=== PATIENT | female | born 1970 ===

== ENCOUNTER 2022-10-22 18:23 | Emergency (ER) | payer OTHER, SELFPAY ==
--- NOTE | ~2022-10-22 | XR_ITS ---
EXAMINATION: XR CHEST CLINICAL INFORMATION: Cough with yellow phlegm COMPARISON: None TECHNIQUE: 2 views of the chest were obtained. FINDINGS: Aside from the presence of some minimal left basilar atelectasis, no significant abnormality is noted involving the heart, lungs, mediastinum, bony thorax or soft tissues. XR/XR chest 2V IMPRESSION: Unremarkable examination.
[2022-10-22 18:30] VITALS: BP 159/90; PULSE 94; RESP 18; TEMP 36.6; O2SAT 96; BMI 41.5
--- NOTE | 2022-10-22 18:32 | ED.GENADULT ---
HPI - General Adult General Chief complaint: Upper Respiratory Symptoms <DUKE Suggs - Last Filed: 10/22/22 21:05> Stated complaint: back rib pain <DUKE Suggs - Last Filed: 10/22/22 21:05> Time Seen by Provider: 10/22/22 20:22 <DUKE Suggs - Last Filed: 10/22/22 21:05> Source: patient <Dave Chappell MD - Last Filed: 10/22/22 20:53> Mode of arrival: ambulatory <Dave Chappell MD - Last Filed: 10/22/22 20:53> Limitations: no limitations <Dave Chappell MD - Last Filed: 10/22/22 20:53> History of Present Illness HPI narrative: 52-year-old female with history of diabetes presents to the emergency department with cough, chest discomfort. Symptoms started 2 weeks ago. They have been stable. There has been no clear relieving or exacerbating features. Symptoms are described as moderate in nature. However over the last couple days she has developed yellow mucus production. She does have a pleuritic type of chest pain specifically on the right side. She denies wheezing or chest pain with exertion. She has had no fevers or chills. Last week she did have some diarrhea but no constipation, nausea, or vomiting. Patient has been attempting home remedies without significant relief. <Dave Chappell MD - Last Filed: 10/22/22 20:53> Related Data Home medications: Previous Rx's Medication Instructions Recorded azithromycin 250 mg tablet 250 mg PO DAILY 4 days #4 tabs 10/22/22 benzonatate 200 mg capsule 200 mg PO TID PRN cough #14 caps 10/22/22 <DUKE Suggs - Last Filed: 10/22/22 21:05> Allergies/adverse reactions: Allergies Allergy/AdvReac Type Severity Reaction Status Date / Time No Known Allergies Allergy Verified 10/22/22 18:30 <DUKE Suggs - Last Filed: 10/22/22 21:05> Review of Systems Review of Systems: CONSTITUTIONAL: Denies weight loss, fever and chills. HEENT: Denies changes in vision and hearing. RESPIRATORY: Denies SOB + cough. CV: Denies palpitations + CP. GI: Denies abdominal pain, nausea, vomiting and diarrhea. : Denies dysuria and urinary frequency. MSK: Denies myalgia and joint pain. SKIN: Denies rash and pruritus. NEUROLOGICAL: Denies headache and syncope. PSYCHIATRIC: Denies recent changes in mood. Denies anxiety and depression. <Dave Chappell MD - Last Filed: 10/22/22 20:53> Yes all other systems are reviewed and are negative <Dave Chappell MD - Last Filed: 10/22/22 20:53> [facility] Social History Social History: Social History Advance Directives: No Advance Directives Information Provided: Yes <DUKE Suggs - Last Filed: 10/22/22 21:05> Physical Exam ED Vital Signs: Vital Signs - 24 hr 10/22/22 18:30 Temperature 98 F Pulse Rate 94 Respiratory Rate 18 Blood Pressure 159/90 H Pulse Oximetry 96 Oxygen Delivery Method Room Air BMI result Body Mass Index 41.5 <DUKE Suggs - Last Filed: 10/22/22 21:05> Vital Signs - 24 hr 10/22/22 18:30 Temperature 98 F Pulse Rate 94 Respiratory Rate 18 Blood Pressure 159/90 H Pulse Oximetry 96 Oxygen Delivery Method Room Air BMI result Body Mass Index 41.5 GEN: Well developed, no acute distress, alert, oriented HEENT: Normocephalic, atraumatic, normal external ears, nose appears normal, no oropharyngeal edema or exudates Eyes: Normal to appearance Neck: Supple, no lymphadenopathy Respiratory: Talks in complete sentences, no respiratory distress, clear to auscultation bilaterally Cardiovascular: Regular rate and rhythm, no murmurs rubs or gallops Abdomen: Soft, nontender, nondistended, no guarding, no rebound Back: No CVA tenderness Extremities: No clubbing cyanosis or edema Neurologic: No focal neurologic deficits, cranial nerves 2-12 intact, strength is 5/5 bilaterally, gait normal Skin: No rash <Dave Chappell MD - Last Filed: 10/22/22 20:53> Course Course Course Narrative: RME: 52 yold female presents to the ED for coughing with yellow phelghm and right sided rib pain only when she coughs. no shortness of breath, pluerisy, leg swelling, or calf pain. <DUKE Suggs - Last Filed: 10/22/22 21:05> Reevaluation(s) Reevaluation #1: Patient's workup is complete. She tested positive for COVID. However, symptoms started 2 weeks ago. She is out of the window for Paxlovid. However, she is not developing mucus production. This is concerning for developing bacterial bronchitis superimposed on a previous viral infection. Will start patient on azithromycin and cough suppressant medications. I discussed all of her results including her chest x-ray which did not reveal any acute abnormalities. She will follow up with primary care doctor as needed. <Dave Chappell MD - Last Filed: 10/22/22 20:53> Time: 20:52 <Dave Chappell MD - Last Filed: 10/22/22 20:53> Medications Administered Discontinued Medications Generic Name Dose Route Start Last Admin Trade Name Freq PRN Reason Stop Dose Admin Azithromycin 500 mg 10/22/22 20:43 10/22/22 20:52 Azithromycin 500 Mg Tablet PO 10/22/22 20:44 500 mg ONCE ONE Administration <DUKE Suggs - Last Filed: 10/22/22 21:05> Medications Administered Discontinued Medications Generic Name Dose Route Start Last Admin Trade Name Freq PRN Reason Stop Dose Admin Azithromycin 500 mg 10/22/22 20:43 10/22/22 20:52 Azithromycin 500 Mg Tablet PO 10/22/22 20:44 500 mg ONCE ONE Administration <Dave Chappell MD - Last Filed: 10/22/22 20:53> Medical Decision Making Medical Decision Making MDM Narrative: 52-year-old female with history of diabetes presents with cough, pleuritic type of chest pain he now tested positive for COVID. Examination revealed clear to auscultation bilaterally. Her cardiac exam was normal. There is no lower extremity edema. Chest x-ray was normal without any evidence of infiltrates. At this time, will start patient on antibiotics and symptomatic relief. <Dave Chappell MD - Last Filed: 10/22/22 20:53> Differential Diagnosis Differential Diagnoses: The differential diagnosis associated with the presentation includes (Pneumonia, COVID, flu, RSV, CHF) <Dave Chappell MD - Last Filed: 10/22/22 20:53> Acute bronchitis <Dave Chappell MD - Last Filed: 10/22/22 20:53> Admission/Observation Consideration of admission/observation: Escalation of care including admission/observation considered <Dave Chappell MD - Last Filed: 10/22/22 20:53> Lab Data MDM Lab Attestation statement: I reviewed the patient's lab results. <Dave Chappell MD - Last Filed: 10/22/22 20:53> Labs: Lab Results 10/22/22 Range/Units 19:31 Influenza Type A (PCR) NEGATIVE (Negative) Influenza Type B (PCR) NEGATIVE (Negative) RSV RNA Qual (PCR) NEGATIVE (Negative) SARS-CoV-2 RNA (RT-PCR) POSITIVE A (Negative) <DUKE Suggs - Last Filed: 10/22/22 21:05> Lab Results 10/22/22 Range/Units 19:31 Influenza Type A (PCR) NEGATIVE (Negative) Influenza Type B (PCR) NEGATIVE (Negative) RSV RNA Qual (PCR) NEGATIVE (Negative) SARS-CoV-2 RNA (RT-PCR) POSITIVE A (Negative) <Dave Chappell MD - Last Filed: 10/22/22 20:53> Independent Interpretation I performed an independent interpretation of an: Plain X-Ray (Chest x-ray no acute cardiopulmonary disease) <Dave Chappell MD - Last Filed: 10/22/22 20:53> Radiology Impression Discussion of test interpretation with radiology: I have reviewed the radiologist's reading. ( XR/XR chest 2V IMPRESSION: Unremarkable examination. Dictated By:Geronimo Arguello MDSigned By:<Electronically signed by Geronimo Arguello MD in [place]>10/22/221922) <Dave Chappell MD - Last Filed: 10/22/22 20:53> Prescription Management I considered prescription management with: Antibiotic <Dave Chappell MD - Last Filed: 10/22/22 20:53> Chronic Conditions Patient?s care impacted by: Diabetes <Dave Chappell MD - Last Filed: 10/22/22 20:53> Discharge Plan Discharge Clinical Impression: Upper respiratory infection <DUKE Suggs - Last Filed: 10/22/22 21:05> Patient Disposition: Home, Self-Care <DUKE Suggs - Last Filed: 10/22/22 21:05> Instructions: Upper Respiratory Infection (ED), Viral Syndrome (ED) <DUKE Suggs - Last Filed: 10/22/22 21:05> Additional Instructions: Your seen today for a viral upper respiratory symptoms. He tested positive for COVID. Her symptoms started 2 weeks ago. Given your progressive cough and mucus production, I suspect your developing a bacterial bronchitis for which I am prescribing azithromycin. I am recommending close follow-up with her primary care provider in 3-5 days. However, should her symptoms worsen, please seek emergent care in the emergency department. <DUKE Suggs - Last Filed: 10/22/22 21:05> Prescriptions: New azithromycin 250 mg tablet 250 mg PO DAILY 4 Days Qty: 4 0RF Rx Instructions: start on day 2 of therapy benzonatate 200 mg capsule 200 mg PO TID PRN (Reason: cough) Qty: 14 0RF <DUKE Suggs - Last Filed: 10/22/22 21:05>
[2022-10-22 20:12] LABS: Influenza A PCR NEGATIVE (Negative); Influenza B PCR NEGATIVE (Negative); Resp Syncy Virus RNA Qual PCR NEGATIVE (Negative); SARS COV2 PCR INHOUSE POSITIVE (Negative)
[2022-10-22] MEDS: Azithromycin 500 MG TABLET PO (20:52)
--- NOTE | 2022-10-22 21:05 | PC.NURSE ---
discharge instructions given/explained, ambulates safely/independently, no apparent distress, all questions answered
--- NOTE | 2022-10-22 21:06 | PC.NURSE ---
no respiratory distress; able to speak in full sentences
== END 2022-10-22 21:06 | disposition home or self-care (01) ==
PROVIDERS: Physician Assistant; Emergency Provider Emergency Medicine
DX: U07.1 COVID-19 (principal); J06.9 Acute upper respiratory infection, unspecified; E11.9 Type 2 diabetes mellitus without complications
CPT/HCPCS: 0241U; 71046; 99283; 99284

== ENCOUNTER 2022-11-15 02:15 | Emergency (ER) | payer OTHER, SELFPAY ==
[2022-11-15] VITALS (7 sets, daily range): BP systolic 137–202; BP diastolic 76–106; PULSE 72–108; RESP 16–24; TEMP 36.7–37.2; O2SAT 94–98; BMI 41.3
--- NOTE | ~2022-11-15 | CT_ITS ---
EXAMINATION: CT ABDOMEN AND PELVIS WITHOUT CONTRAST CLINICAL INFORMATION: Right-sided flank pain COMPARISON: None TECHNIQUE: Multidetector volumetric imaging was performed from the superior aspect of the liver through the pubic symphysis. Sagittal and coronal reformatted images were obtained on the technologist's workstation. This CT examination was performed using dose optimization techniques as appropriate, variously including the following: *Automated exposure control *Adjustment of mA and/or kV according to patient size (this includes techniques or standardized protocols for targeted exams where dose is matched to indication/reason for exam; i.e. extremities or head) *Use of iterative reconstruction technique DLP: 917 mGy-cm FINDINGS: There is mild atelectasis noted within the lingula visualized lower lobe. The liver is mildly enlarged and demonstrates diffusely decreased attenuation. The gallbladder is surgically absent. There is fatty atrophy of the pancreas. The spleen and adrenal glands are unremarkable. Mild right-sided hydronephrosis secondary to a 2 mm calculus within the right ureterovesical junction. No other renal calculi are noted within either kidney. There is mild asymmetric perinephric stranding of the right kidney. The stomach is decompressed. Normal caliber loops of small and large bowel. Moderate colonic diverticulosis without CT evidence to suggest active diverticulitis. Normal appendix. Small fat-containing umbilical and periumbilical hernia. Normal caliber abdominal aorta demonstrating mild atherosclerotic disease. No retroperitoneal lymphadenopathy. The bladder is relatively decompressed. Unremarkable CT appearance of the uterus. No gross free pelvic fluid. No inguinal lymphadenopathy. Moderate diffuse degenerative changes of the spine. CT/CT abdomen pelvis wo IV con IMPRESSION: 1. Mild right-sided hydronephrosis secondary to a 2 mm calculus within the right ureterovesical junction. 2. Mild hepatomegaly with diffusely decreased liver attenuation suggesting hepatic steatosis. Correlation with liver enzymes recommended. 3. Colonic diverticulosis. Fleischner guidelines were followed.
[2022-11-15] MEDS: Acetaminophen 325 MG TABLET 650 MG PO (02:38)
--- NOTE | 2022-11-15 02:53 | MHC.EDTECH ---
PT BLOOD DRAWN AND SENT TO LAB .
[2022-11-15 02:57] LABS: MANUAL DIFF FLAG NO
[2022-11-15 03:00] LABS: Basophils Percent Auto 0.4 % (0-2); Eosinophils Absolute Auto 0.2 X10*3/uL (0.0-0.4); Eosinophils Percent Auto 3.9 % (0-4); Hematocrit 37.8 % (37.0-47.0); Imm Gran Abs Auto 0.01 X10*3/uL (0.00-0.03); Imm Gran Pct Auto 0.2 % (0.0-0.4); Lymphocytes Absolute Auto 2.1 X10*3/uL (1.2-4.9); Lymphocytes Percent Auto 43.3 % (20-40); Mean Corpuscular HGB Conc 34.4 g/dl (31.0-35.0); Mean Corpuscular Hemoglobin 30.9 pg (27.0-33.0); Mean Corpuscular Volume 89.8 fL (80.0-98.0); Mean Platelet Volume 10.3 fL (9.4-12.3); Monocytes Absolute Auto 0.3 X10*3/uL (0.1-1.2); Monocytes Percent Auto 6.2 % (2-11); Neutrophils Absolute Auto 2.2 x10*3/uL (2.0-8.3); Platelet Count 225 X10*3/uL (160-400); Red Blood Count 4.21 X10*6/uL (4.20-5.50); Red Cell Distribution Width 12.1 % (11.0-16.0); White Blood Count 4.8 X10*3/uL (4.8-10.8)
[2022-11-15 03:16] LABS: Alanine Aminotransferase 25 U/L (0-31); Albumin Level 4.2 g/dL (3.5-5.0); Alkaline Phosphatase 99 U/L (39-117); Anion Gap 14 (12-20); Aspartate Amino Transferase 18 U/L (5-31); Bilirubin Total 0.8 mg/dL (0.0-1.0); Blood Urea Nitrogen 15 mg/dL (9-16); Calcium 9.1 mg/dL (8.4-10.2); Carbon Dioxide 26 mmol/L (22-29); Chloride 105 mmol/L (96-108); Creatinine Clr Calc Pharmacy 81.7; Estimated Glomerular Filt Rate > 60; Glucose Random 238 mg/dL (60-115); Potassium 4.7 mmol/L (3.3-5.1); Sodium 140 mmol/L (135-145); Total Protein 6.9 g/dL (6.5-8.0)
--- NOTE | 2022-11-15 04:20 | MHC.EDTECH ---
PT WAS CALLED BACK TO TRIAGE TO COLLECT URINE SAMPLE AND RE DO VITALS SIGN .
[2022-11-15 04:26] LABS: Appearance Urine Clear; Color Urine Yellow; Glucose Urine UA 250 mg/dL (Negative); Leukocyte Esterase Urine Negative (Negative); Nitrite Urine Negative (Negative); PH 6.5 (5.0-9.0); Specific Gravity - Urine 1.015 (1.005-1.025); UMIC TRIGGER UACC YES; Urine Blood Large (3+) (Negative); Urine Ketones Negative (Negative); Urine Protein Negative (Neg-Trace)
[2022-11-15 04:30] LABS: Bacteria Urine None Seen (None Seen); Hyaline Casts Urine 0-2 /LPF (0-2); RBC Urine >20 /HPF (0-2); Squamous Epithelial Cell Urine 0-2 /HPF (0-2); WBC Urine 0-5 /HPF (0-5)
[2022-11-15] MEDS: 0.9 % Sodium Chloride 1,000 ML 999 ML IV (10:41)
[2022-11-15] MEDS: Ketorolac Tromethamine 30 MG/ML VIAL 15 MG IVPUSH ×2 (10:41→13:21)
--- NOTE | 2022-11-15 11:25 | ED_ITS ---
HPI - Female Genitourinary General Chief complaint: Urogenital-Female Stated complaint: back pain Time Seen by Provider: 11/15/22 09:08 Source: patient Mode of arrival: ambulatory History of Present Illness HPI Narrative: 52-year-old female with history of renal colic presents with worsening right flank pain as well as blood in the urine, nausea but denies any fevers and is having chills. Related Data Previous Rx's Medication Instructions Recorded azithromycin 250 mg tablet 250 mg PO DAILY 4 days #4 tabs 10/22/22 benzonatate 200 mg capsule 200 mg PO TID PRN cough #14 caps 10/22/22 ketorolac 10 mg tablet 10 mg PO Q6H PRN pain 5 days #20 11/15/22 tabs tamsulosin 0.4 mg capsule (Flomax) 0.4 mg PO BEDTIME #4 caps 11/15/22 Allergies Allergy/AdvReac Type Severity Reaction Status Date / Time No Known Allergies Allergy Verified 11/15/22 02:26 Review of Systems Review of Systems: Pertinent positives and negatives as stated in HPI [facility] Past Medical History Source: nursing notes reviewed Social History Social History Alcohol intake: never Smoked in Last 30 Days: No Use of substances other than those prescribed or required for medical reasons: No Advance Directives: No Physical Exam Vital Signs: Vital Signs: Last Vital Signs Temp 98.7 F 11/15/22 11:55 Pulse 91 11/15/22 11:55 Resp 16 11/15/22 11:55 BP 137/76 11/15/22 11:55 Pulse Ox 94 11/15/22 11:55 O2 Del Method 11/15/22 11:55 BMI result Body Mass Index 41.3 VITAL SIGNS: Reviewed. GENERAL: Well developed, well nourished, in moderate to severe distress. HEAD: Normocephalic/atraumatic EYES: PERRLA, EOMI LUNGS: Normal breath sounds. No adventitious sounds or accessory muscle use. SpO2<94> CARDIOVASCULAR: Regular rate and rhythm without noted murmurs ABDOMEN: Soft, non-tender, non-distended with bowel sounds,, no CVA tenderness MUSCULOSKELETAL: No tenderness, deformities, or effusions noted on gross inspection. EXTREMITIES: No cyanosis, clubbing or edema. SKIN: Inspection of the skin reveals no rashes NEUROLOGIC: Alert and oriented x 4. Strength and sensation to light touch were grossly intact x 4. Medications Administered Discontinued Medications Generic Name Dose Route Start Last Admin Trade Name Isa PRN Reason Stop Dose Admin Acetaminophen 650 mg 11/15/22 02:32 11/15/22 02:38 Acetaminophen 325 Mg Tablet PO 11/15/22 02:33 650 mg ONCE ONE Administration Sodium Chloride 1,000 mls @ 999 mls/hr 11/15/22 09:30 11/15/22 11:46 Ns IV 11/15/22 10:30 Infused .Q1H1M ALLEY Infusion Ketorolac Tromethamine 15 mg 11/15/22 09:26 11/15/22 10:41 Ketorolac Tromethamine 30 Mg/Ml Vial IVPUSH 11/15/22 09:27 15 mg ONCE ONE Administration Medical Decision Making Medical Decision Making [facility] Narrative: 52-year-old female with history and clinical presentation suggestive possible renal and less likely felt to be a pyelonephritis and she is status post cholecystectomy. I reviewed all investigations in my interpretation as patient has hydronephrosis secondary to 2 mm stone at the UVJ. Patient receiving analgesics, IV fluids and will be re-evaluated. On re-evaluation patient is feeling much better, she is not nauseous or vomiting and will be placed on Flomax and medications for pain and given referral to foll ow-up with urology. Patient states that she has passed all prior renal stones. Differential Diagnosis Please see the discussion above Lab Data Please see the discussion above 11/15/22 02:52 11/15/22 02:52 Labs: Lab Results 11/15/22 11/15/22 11/15/22 Range/Units 02:52 02:52 04:21 WBC 4.8 (4.8-10.8) X10*3/uL RBC 4.21 (4.20-5.50) X10*6/uL Hgb 13.0 (12.0-16.0) g/dl Hct 37.8 (37.0-47.0) % MCV 89.8 (80.0-98.0) fL MCH 30.9 (27.0-33.0) pg MCHC 34.4 (31.0-35.0) g/dl RDW 12.1 (11.0-16.0) % Plt Count 225 (160-400) X10*3/uL MPV 10.3 (9.4-12.3) fL Immature Gran % (Auto) 0.2 (0.0-0.4) % Neut % (Auto) 46.0 (45-73) % Lymph % (Auto) 43.3 H (20-40) % [place] % (Auto) 6.2 (2-11) % Eos % (Auto) 3.9 (0-4) % Baso % (Auto) 0.4 (0-2) % Lymph # (Auto) 2.1 (1.2-4.9) X10*3/uL [place] # (Auto) 0.3 (0.1-1.2) X10*3/uL Eos # (Auto) 0.2 (0.0-0.4) X10*3/uL Baso # (Auto) 0.0 (0.0-0.2) X10*3/uL Abs Immat Gran (auto) 0.01 (0.00-0.03) X10*3/uL Absolute Neuts (auto) 2.2 (2.0-8.3) x10*3/uL Absolute Nucleated RBC 0.000 (0.0-0.012) X10*3/uL Nucleated RBC % (auto) 0.0 (0.0-0.2) /100WBC Sodium 140 (135-145) mmol/L Potassium 4.7 (3.3-5.1) mmol/L Chloride 105 (96-108) mmol/L Carbon Dioxide 26 (22-29) mmol/L Anion Gap 14 (12-20) BUN 15 (9-16) mg/dL Creatinine 0.85 (0.5-1.4) mg/dL Estim Creat Clear Calc 81.7 Estimated GFR > 60 Random Glucose 238 H (60-115) mg/dL Calcium 9.1 (8.4-10.2) mg/dL Total Bilirubin 0.8 (0.0-1.0) mg/dL AST 18 (5-31) U/L ALT 25 (0-31) U/L Alkaline Phosphatase 99 (39-117) U/L Total Protein 6.9 (6.5-8.0) g/dL Albumin 4.2 (3.5-5.0) g/dL Urine Color Yellow Urine Appearance Clear Urine pH 6.5 (5.0-9.0) Ur Specific [place] 1.015 (1.005-1.025) Urine Protein Negative (Neg-Trace) mg/dL Urine Glucose (UA) 250 H (Negative) mg/dL Urine Ketones Negative (Negative) mg/dL Urine Blood Large (3+) H (Negative) Urine Nitrite Negative (Negative) Ur Leukocyte Esterase Negative (Negative) Urine RBC >20 H (0-2) /HPF Urine WBC 0-5 (0-5) /HPF Ur Squamous Epith Cells 0-2 (0-2) /HPF Urine Bacteria None Seen (None Seen) Hyaline Casts 0-2 (0-2) /LPF Radiology Impression Radiologist Impression: My interpretation is in agreement with radiology's impression of the imaging study. Critical Care Time Critical Care Time Critical Care Time: Yes Total Critical Care Time: 30 Attestation: I personally attest to this time spent taking care of the patient. Discharge Plan Discharge Clinical Impression: Hydronephrosis, Ureterolithiasis Patient Disposition: Home, Self-Care Instructions: Renal Colic (ED), Low Oxalate Diet (ED), Hydronephrosis (ED), Ureteral Stones (ED) Additional Instructions: 1. Tylenol 1000 mg, orally, every 6 hours as needed for pain control. Do not exceed 4000 mg within 24 hours. 2. You have been given a referral to follow-up with urology, please call the office today's set up an appointment for re-evaluation further outpatient management.. Increase the amount of water intake. 3. Follow-up with your primary care provider as well. Return to the ER for any worsening symptoms. Prescriptions: New ketorolac 10 mg tablet 10 mg PO Q6H PRN (Reason: pain) 5 Days Qty: 20 0RF Rx Instructions: Patient received Toradol in the emergency room. tamsulosin [Flomax] 0.4 mg capsule 0.4 mg PO BEDTIME Qty: 4 0RF No Action azithromycin 250 mg tablet 250 mg PO DAILY 4 Days Qty: 4 0RF Rx Instructions: start on day 2 of therapy benzonatate 200 mg capsule 200 mg PO TID PRN (Reason: cough) Qty: 14 0RF Referrals: Prashanth Aquino MD [Physician] -
[2022-11-15] MEDS: Tamsulosin HCL 0.4 MG CAPSULE PO (13:22)
--- NOTE | 2022-11-15 13:34 | PC.NURSE ---
PT REPORTS THAT SHE IS FEELING BETTER AND HER PAIN LEVEL IS DOWN TO A 3. REPORTS THAT SHE FEELS WELL ENOUGH TO GO HOME AND HER DAUGHTER IS HERE TO BRING HER HOME. DENIES N/V. SKIN WARM AND DRY. RESP UNLABORED.
== END 2022-11-15 14:37 | disposition home or self-care (01) ==
PROVIDERS: Emergency Provider Student in an Organized Health Care Education/Training Program
DX: N13.30 Unspecified hydronephrosis (principal); N20.1 Calculus of ureter; M54.50 Low back pain, unspecified; Z79.899 Other long term (current) drug therapy
CPT/HCPCS: 36415; 74176; 80053; 81001; 85025; 96361; 96374; 96376; 99284; 99285; J1885

== ENCOUNTER 2023-03-26 22:16 | Emergency (ER) | payer OTHER, SELFPAY ==
--- NOTE | ~2023-03-26 | CT_ITS ---
EXAMINATION: CT ABDOMEN AND PELVIS WITHOUT CONTRAST CLINICAL INFORMATION: Right flank pain, right lower quadrant pain COMPARISON: CT abdomen pelvis 11/15/2022 TECHNIQUE: Multidetector volumetric imaging was performed from the superior aspect of the liver through the pubic symphysis. Sagittal and coronal reformatted images were obtained on the technologist's workstation. This CT examination was performed using dose optimization techniques as appropriate, variously including the following: *Automated exposure control *Adjustment of mA and/or kV according to patient size (this includes techniques or standardized protocols for targeted exams where dose is matched to indication/reason for exam; i.e. extremities or head) *Use of iterative reconstruction technique DLP: 808 mGy-cm FINDINGS: LUNG BASES: The visualized lung bases are unremarkable aside from bibasilar scarring/atelectasis. LIVER, GALLBLADDER, AND BILIARY TREE: The liver is again noted to be enlarged measuring 19.6 cm in cephalocaudad dimension with decreased attenuation consistent with hepatic steatosis. No focal hepatic lesion or biliary ductal dilatation is present. Status post cholecystectomy. PANCREAS: Unremarkable. There is fatty infiltration of the pancreatic head. SPLEEN: Unremarkable. ADRENAL GLANDS: Unremarkable. KIDNEYS AND URETERS: The kidneys are normal in size, shape, and attenuation. No hydronephrosis, hydroureter, or calculi seen. No perinephric stranding. The previously seen obstructing right UVJ stone is no longer present and the previously noted mild right hydronephrosis has resolved. BLADDER: Unremarkable. GASTROINTESTINAL TRACT: The small and large bowel are unremarkable aside from the presence of colonic diverticula without diverticulitis. The appendix is unremarkable. ABDOMINAL WALL: There is a small periumbilical hernia seen containing fat. LYMPH NODES: No retroperitoneal lymphadenopathy. VASCULAR: Unremarkable. PELVIC VISCERA: The uterus and adnexa are unremarkable. OSSEOUS STRUCTURES: Unremarkable. CT/CT abdomen pelvis wo IV con IMPRESSION: 1. A cause for the patient's right flank pain has not been found. 2. The previously seen obstructing right UVJ stone is no longer present and the previously noted mild right hydronephrosis has resolved. 3. Incidental note made of enlarged fatty liver, colonic diverticulosis without diverticulitis, normal appearing appendix and a small periumbilical hernia containing fat. Fleischner guidelines were followed.
[2023-03-26 23:38] VITALS: BP 158/90; PULSE 83; RESP 18; TEMP 36.6; O2SAT 96; BMI 41.6
[2023-03-27 00:09] LABS: Appearance Urine Clear; Color Urine Yellow; Glucose Urine UA Negative (Negative); Leukocyte Esterase Urine Negative (Negative); Nitrite Urine Negative (Negative); PH 5.5 (5.0-9.0); Specific Gravity - Urine 1.025 (1.005-1.025); Urine Blood Negative (Negative); Urine Ketones Negative (Negative); Urine Protein Negative (Neg-Trace)
[2023-03-27 00:10] LABS: MANUAL DIFF FLAG NO
[2023-03-27 00:12] LABS: Bacteria Urine None Seen (None Seen); Hyaline Casts Urine 0-2 /LPF (0-2); RBC Urine 0-2 /HPF (0-2); Squamous Epithelial Cell Urine 0-2 /HPF (0-2); WBC Urine 0-5 /HPF (0-5)
[2023-03-27 00:13] LABS: Basophils Percent Auto 0.4 % (0-2); Eosinophils Absolute Auto 0.3 X10*3/uL (0.0-0.4); Eosinophils Percent Auto 3.7 % (0-4); Hematocrit 36.1 % (37.0-47.0); Hemoglobin 12.2 g/dl (12.0-16.0); Imm Gran Abs Auto 0.02 X10*3/uL (0.00-0.03); Imm Gran Pct Auto 0.3 % (0.0-0.4); Lymphocytes Absolute Auto 2.1 X10*3/uL (1.2-4.9); Lymphocytes Percent Auto 31.6 % (20-40); Mean Corpuscular HGB Conc 33.8 g/dl (31.0-35.0); Mean Corpuscular Hemoglobin 30.8 pg (27.0-33.0); Mean Corpuscular Volume 91.2 fL (80.0-98.0); Mean Platelet Volume 10.5 fL (9.4-12.3); Monocytes Absolute Auto 0.5 X10*3/uL (0.1-1.2); Monocytes Percent Auto 6.9 % (2-11); Neutrophils Absolute Auto 3.8 x10*3/uL (2.0-8.3); Neutrophils Percent Auto 57.1 % (45-73); Platelet Count 234 X10*3/uL (160-400); Red Blood Count 3.96 X10*6/uL (4.20-5.50); Red Cell Distribution Width 11.9 % (11.0-16.0); White Blood Count 6.7 X10*3/uL (4.8-10.8)
[2023-03-27 00:28] LABS: Alanine Aminotransferase 20 U/L (0-31); Albumin Level 4.2 g/dL (3.5-5.0); Alkaline Phosphatase 81 U/L (39-117); Anion Gap 14 (12-20); Aspartate Amino Transferase 16 U/L (5-31); Bilirubin Total 0.8 mg/dL (0.0-1.0); Blood Urea Nitrogen 12 mg/dL (9-16); Calcium 9.7 mg/dL (8.4-10.2); Carbon Dioxide 24 mmol/L (22-29); Chloride 106 mmol/L (96-108); Creatinine Clr Calc Pharmacy 90.4; Estimated Glomerular Filt Rate > 60; Glucose Random 161 mg/dL (60-115); Potassium 4.4 mmol/L (3.3-5.1); Sodium 140 mmol/L (135-145); Total Protein 7.2 g/dL (6.5-8.0)
--- NOTE | 2023-03-27 07:20 | ED.FEMALEGU ---
HPI - Female Genitourinary General Chief complaint: Urogenital-Female Stated complaint: Flank pain Time Seen by Provider: 03/27/23 07:19 Source: patient Mode of arrival: ambulatory Limitations: no limitations History of Present Illness HPI Narrative: 52 yo female with history of kidney stone presents to the ER for evaluation of intermittent right sided flank pain and right lower quadrant pain for the last 5 days. She reports it is associated with nausea and diarrhea. No urinary symptoms. When the pain comes it is 9/10, stabbing and sharp pain. She states it feels similar to when she had a kidney stone in the past. No fever or chills. MD elicited complaint: flank pain and other (RLQ pain) Pertinent past history: other (kidney stone) Onset (ago): day(s) (5) Location of symptoms: RLQ and flank Severity: moderate Severity scale (1-10): 6 Quality of pain: stabbing Consistency: intermittent Vaginal discharge: none Vaginal bleeding: none Exacerbating factors: none Relieving factors: none Associated symptoms: abdominal pain Treatment prior to arrival: none Related Data Home Medications Medication Instructions Recorded Confirmed blood sugar diagnostic (FreeStyle #10 ea 01/24/23 Lite Strips) lancets 28 gauge (FreeStyle #100 ea 01/24/23 Lancets) lisinopril 2.5 mg tablet 2.5 mg PO DAILY 01/24/23 metformin 500 mg tablet,extended 500 mg PO DAILY 01/24/23 release 24 hr Previous Rx's Medication Instructions Recorded azithromycin 250 mg tablet 250 mg PO DAILY 4 days #4 tabs 10/22/22 benzonatate 200 mg capsule 200 mg PO TID PRN cough #14 caps 10/22/22 ketorolac 10 mg tablet 10 mg PO Q6H PRN pain 5 days #20 11/15/22 tabs tamsulosin 0.4 mg capsule (Flomax) 0.4 mg PO BEDTIME #4 caps 11/15/22 cyclobenzaprine 10 mg tablet 10 mg PO TID PRN muscle spasm #10 03/27/23 tabs naproxen 500 mg tablet 500 mg PO BID PRN pain #20 tabs 03/27/23 Allergies Allergy/AdvReac Type Severity Reaction Status Date / Time No Known Allergies Allergy Verified 11/15/22 02:26 Review of Systems Review of Systems: Yes all other systems are reviewed and are negative PMFSH Past Medical History Medical History (Updated 03/27/23 @ 09:49 by DUKE Jimenez) Diabetes Hyperlipidemia Hypertension Surgical History (Updated 03/27/23 @ 08:20 by Sarina Reddy) Hx of cholecystectomy Social History Social History Alcohol intake: never Smoked in Last 30 Days: No Use of substances other than those prescribed or required for medical reasons: No Advance Directives: No Patient : No Physical Exam Vital Signs: Vital Signs: Last Vital Signs Temp 97.9 F 03/27/23 09:54 Pulse 93 03/27/23 09:57 Resp 18 03/27/23 09:57 BP 137/80 03/27/23 09:57 Pulse Ox 96 03/27/23 09:57 O2 Del Method Room Air 03/27/23 09:57 BMI result Body Mass Index 41.6 Appearance: Alert. Oriented X3. No acute distress. Head: normocephalic, atraumatic. Eyes: Pupils equal, round and reactive to light. ENT: Pharynx normal. No tonsillar swelling or exudate. Neck: Normal inspection. Neck supple. CVS: Normal heart rate and rhythm. Pulses normal. Respiratory: No respiratory distress. Breath sounds normal. Abdomen: Soft with mild RLQ tenderness to deep palpation, mild CVA tenderness on the right and soft tissue tenderness of the lumbar region on the right. +BS x4 Skin: Skin warm and dry. Normal skin color. Normal skin turgor. No rashes. Extremities: No lower extremity edema. No joint swelling. Neuro/psych: Oriented X 3. No motor deficit. No sensory deficit. CN II-XII intact. Normal speech and cognition. Medical Decision Making Medical Decision Making MDM Narrative: 52 yo female presenting with right flank pain and right lower quadrant pain, intermittent along with nausea and diarrhea. lab workup is unremarkable. UA without blood. doubt kidney stone. she has RLQ tenderness so CT scan was done which was normal. No current pain. She has lower back tenderness, her pain may be muscular. Will treat with nsaid and muscle relaxers and see if it improves. return precautions were discussed. comfortable w/ d/c home. Differential Diagnosis Differential Diagnoses: The differential diagnosis associated with the presentation includes obstructive uropathy, kidney stone, pyelonephritis, appendicitis, MSK pain Admission/Observation Consideration of admission/observation: Escalation of care including admission/observation considered Right flank pain, RLQ pain, considered admission Lab Data MDM Lab Attestation statement: I reviewed the patient's lab results. no leukocytosis, normal kidney function 03/27/23 00:01 03/27/23 00:01 Labs: Lab Results 03/26/23 03/27/23 03/27/23 Range/Units 23:49 00:01 00:01 WBC 6.7 (4.8-10.8) X10*3/uL RBC 3.96 L (4.20-5.50) X10*6/uL Hgb 12.2 (12.0-16.0) g/dl Hct 36.1 L (37.0-47.0) % MCV 91.2 (80.0-98.0) fL MCH 30.8 (27.0-33.0) pg MCHC 33.8 (31.0-35.0) g/dl RDW 11.9 (11.0-16.0) % Plt Count 234 (160-400) X10*3/uL MPV 10.5 (9.4-12.3) fL Immature Gran % (Auto) 0.3 (0.0-0.4) % Neut % (Auto) 57.1 (45-73) % Lymph % (Auto) 31.6 (20-40) % [place] % (Auto) 6.9 (2-11) % Eos % (Auto) 3.7 (0-4) % Baso % (Auto) 0.4 (0-2) % Lymph # (Auto) 2.1 (1.2-4.9) X10*3/uL [place] # (Auto) 0.5 (0.1-1.2) X10*3/uL Eos # (Auto) 0.3 (0.0-0.4) X10*3/uL Baso # (Auto) 0.0 (0.0-0.2) X10*3/uL Abs Immat Gran (auto) 0.02 (0.00-0.03) X10*3/uL Absolute Neuts (auto) 3.8 (2.0-8.3) x10*3/uL Absolute Nucleated RBC 0.000 (0.0-0.012) X10*3/uL Nucleated RBC % (auto) 0.0 (0.0-0.2) /100WBC Sodium 140 (135-145) mmol/L Potassium 4.4 (3.3-5.1) mmol/L Chloride 106 (96-108) mmol/L Carbon Dioxide 24 (22-29) mmol/L Anion Gap 14 (12-20) BUN 12 (9-16) mg/dL Creatinine 0.77 (0.5-1.4) mg/dL Estim Creat Clear Calc 90.4 Estimated GFR > 60 Random Glucose 161 H (60-115) mg/dL Calcium 9.7 D (8.4-10.2) mg/dL Total Bilirubin 0.8 (0.0-1.0) mg/dL AST 16 (5-31) U/L ALT 20 (0-31) U/L Alkaline Phosphatase 81 (39-117) U/L Total Protein 7.2 (6.5-8.0) g/dL Albumin 4.2 (3.5-5.0) g/dL Urine Color Yellow Urine Appearance Clear Urine pH 5.5 (5.0-9.0) Ur Specific [place] 1.025 (1.005-1.025) Urine Protein Negative (Neg-Trace) mg/dL Urine Glucose (UA) Negative (Negative) mg/dL Urine Ketones Negative (Negative) mg/dL Urine Blood Negative (Negative) Urine Nitrite Negative (Negative) Ur Leukocyte Esterase Negative (Negative) Urine RBC 0-2 (0-2) /HPF Urine WBC 0-5 (0-5) /HPF Ur Squamous Epith Cells 0-2 (0-2) /HPF Urine Bacteria None Seen (None Seen) Hyaline Casts 0-2 (0-2) /LPF Independent Interpretation I performed an independent interpretation of an: CT Scan Interpretation: CT without kidney stone or mesenteric changes in the RLQ, agree w/ radiology read Radiology Impression Discussion of test interpretation with radiology: I have reviewed the radiologist's reading. Radiologist Impression: CT/CT abdomen pelvis wo IV con IMPRESSION: 1.? A cause for the patient's right flank pain has not been found. 2.? The previously seen obstructing right UVJ stone is no longer present and the previously noted mild right hydronephrosis has resolved. 3.? Incidental note made of enlarged fatty liver, colonic diverticulosis without diverticulitis, normal appearing appendix and a small periumbilical hernia containing fat. External Record Review External record reviewed: Office record, Outpatient record, Prior outpatient labs and Prior outpatient radiology Prescription Management I considered prescription management with: Pain Medication Chronic Conditions Patient?s care impacted by: Other (hx kidney stones) Critical Care Time Critical Care Time Critical Care Time: No Discharge Plan Discharge Clinical Impression: Back pain Patient Disposition: Home, Self-Care Instructions: Back Pain (ED) Additional Instructions: Your CT scan was normal. Your urine test was normal. Your labs were normal. Your pain may be muscular. Recommend trial of muscle relaxers and anti-inflammatory medications as prescribed. If you develop new or worsening symptoms call 911 or come back to the ER for further evaluation. Prescriptions: New cyclobenzaprine 10 mg tablet 10 mg PO TID PRN (Reason: muscle spasm) Qty: 10 0RF naproxen 500 mg tablet 500 mg PO BID PRN (Reason: pain) Qty: 20 0RF No Action ketorolac 10 mg tablet 10 mg PO Q6H PRN (Reason: pain) 5 Days Qty: 20 0RF Rx Instructions: Patient received Toradol in the emergency room. tamsulosin [Flomax] 0.4 mg capsule 0.4 mg PO BEDTIME Qty: 4 0RF azithromycin 250 mg tablet 250 mg PO DAILY 4 Days Qty: 4 0RF Rx Instructions: start on day 2 of therapy benzonatate 200 mg capsule 200 mg PO TID PRN (Reason: cough) Qty: 14 0RF metformin 500 mg tablet extended release 24 hr 500 mg PO DAILY lisinopril 2.5 mg tablet 2.5 mg PO DAILY (DME) lancets [FreeStyle Lancets] 28 gauge misc See Rx Instructions .ROUTE DAILY Qty: 100 Rx Instructions: As directed (DME) FreeStyle Lite Strips Strip See Rx Instructions .ROUTE DAILY Qty: 10 Rx Instructions: As directed Interventions: ED Discharge Assessment Last Done: 03/27/23 09:58 Discharge Date/Time: 03/27/23 09:59
[2023-03-27 07:21] VITALS: BP 149/92; PULSE 83; TEMP 36.4; O2SAT 96
[2023-03-27 07:59] VITALS: BP 129/78; PULSE 76; RESP 18; TEMP 37; O2SAT 94
[2023-03-27 08:19] VITALS: BP 130/78; PULSE 78; RESP 16; TEMP 36.6; O2SAT 95
--- NOTE | 2023-03-27 08:22 | PC.NURSE ---
pt a&ox3, vss, pt comes in with right sided abdominal pain that radiates towards her back. pt states that she didn't do anything to cause the onset of the pain and that the pain started happening this past saturday in the morning, pt states that taking motrin helps ease the pain a little bit but is requesting if the provider can prescribe something for her 9/10 pain, no pain or tenderness upon palpation, no distension noted, pt states that she only has pain when movement is involved, call moore within reach, will continue to monitor.
[2023-03-27 09:54] VITALS: BP 143/79; PULSE 78; TEMP 36.6; O2SAT 94
[2023-03-27 09:57] VITALS: BP 137/80; PULSE 93; RESP 18; O2SAT 96
== END 2023-03-27 09:59 | disposition home or self-care (01) ==
PROVIDERS: Emergency Provider Emergency Medicine
DX: M54.50 Low back pain, unspecified (principal); R10.31 Right lower quadrant pain; R11.0 Nausea; R19.7 Diarrhea, unspecified; E11.9 Type 2 diabetes mellitus without complications; I10 Essential (primary) hypertension; E78.5 Hyperlipidemia, unspecified; Z79.899 Other long term (current) drug therapy
CPT/HCPCS: 36415; 74176; 80053; 81001; 85025; 99284

== ENCOUNTER 2024-02-10 06:12 | Emergency (ER) | payer OTHER, SELFPAY ==
--- NOTE | ~2024-02-10 | CT_ITS ---
EXAMINATION: CT abdomen pelvis w IV con CLINICAL INFORMATION: Reason for Exam Mid abdominal pain, obstruction versus diverticuli COMPARISON: No prior CT available for comparison. TECHNIQUE: Multidetector volumetric imaging was performed from the superior aspect of the liver through the pubic symphysis 85 mL of Omnipaque 350 injected Sagittal and coronal reformatted images were obtained on the technologist's workstation. This CT examination was performed using dose optimization techniques as appropriate, variously including the following: *Automated exposure control *Adjustment of mA and/or kV according to patient size (this includes techniques or standardized protocols for targeted exams where dose is matched to indication/reason for exam; i.e. extremities or head) *Use of iterative reconstruction technique DLP: 812 mGy-cm FINDINGS: LOWER THORAX: Included lung bases are clear. HEPATOBILIARY: No focal hepatic lesions. No biliary ductal dilatation. GALLBLADDER: Surgically absent SPLEEN: Spleen normal in size homogeneous. There is a small amount of fluid ascites around the spleen. PANCREAS: No focal mass or ductal dilatation. STOMACH AND GASTROINTESTINAL TRACT: Stomach is grossly unremarkable. There is mild dilatation of multiple loops of small bowel combined with circumferential wall edema, suggesting ileitis which could be due to infection, IBD, inflammatory, less commonly ischemic, no CT evidence of significant atheromatous plaques at the origin of the SMA and celiac. No CT evidence of appendicitis. There is heavy diverticulosis of the descending and sigmoid colon without CT evidence of acute diverticulitis. ADRENALS: No adrenal nodules. KIDNEYS/URETERS: No hydronephrosis, stones or solid mass lesions. URINARY BLADDER: Urinary bladder is decompressed not well evaluated. PELVIC VISCERA: There is a fluid in the dependent portion of the pelvis cul-de-sac. PERITONEUM: There is a small amount of free fluid ascites along the gutters left more than right, around the spleen and in the dependent portion of the pelvis. LYMPH NODES: No lymphadenopathy. VASCULAR:Abdominal aorta normal in size, no aneurysm found. BONES, ABDOMINAL WALL AND SOFT TISSUES: There is anterior abdominal wall periumbilical hernia containing fat and mesentery no bowels 3.[address]/CT abdomen pelvis w IV con IMPRESSION: 1. There is mild dilatation of multiple loops of small bowel combined with diffuse circumferential wall thickening and low attenuation suggesting edema, this can be seen in the setting of diffuse ileitis which could be due to infection, IBD, inflammatory, less commonly neoplastic or ischemic, no CT evidence of significant atheromatous plaques at the origin of the SMA and celiac. 2. Heavy diverticulosis of the descending and sigmoid colon without CT evidence of acute diverticulitis. 3. Small amount of ascites around the spleen, on each side of the gutters abdomen and dependent portion of the pelvis. 4. Periumbilical hernia containing fat and mesentery. 5. Status post cholecystectomy.
[2024-02-10 06:13] VITALS: BP 139/90; PULSE 121; RESP 18; TEMP 36.6; O2SAT 93; BMI 42.5
[2024-02-10 06:40] LABS: MANUAL DIFF FLAG NO
--- NOTE | 2024-02-10 06:43 | ECG_ITS ---
Test Reason : EPIGASTRIC PX Blood Pressure : / mmHG Vent. Rate : 114 BPM Atrial Rate : 114 BPM P-R Int : 156 ms QRS Dur : 084 ms QT Int : 326 ms P-R-T Axes : 032 013 010 degrees QTc Int : 449 ms Sinus tachycardia Cannot rule out Anterior infarct , age undetermined Abnormal ECG No previous ECGs available Referred By: Generic ED Physician Electronically Signed By:Geraldo Gilliland
[2024-02-10 06:45] VITALS: BP 146/103; PULSE 110; RESP 15; TEMP 37.2; O2SAT 97
--- NOTE | 2024-02-10 06:47 | PC.NURSE ---
Patient presenting to ED for N/V/D/epigastric pain x 3 days. Patient has taken pepto at home with no relief. Patient placed on cardiac monitor technician, sinus tachy, hr 110-115.EKG complete and read by ED provider, 20 G IV line established in L AC, labs drawn and sent to lab. Patient's sister at bedside, call moore in patient's reach, POC ongoing.
[2024-02-10 06:50] LABS: Eosinophils Percent Auto 0.1 % (0-4); Imm Gran Abs Auto 0.04 X10*3/uL (0.00-0.03); Imm Gran Pct Auto 0.4 % (0.0-0.4)
[2024-02-10 06:56] LABS: Alanine Aminotransferase 15 U/L (0-31); Albumin Level 4.6 g/dL (3.5-5.0); Alkaline Phosphatase 74 U/L (39-117); Anion Gap 17 (12-20); Aspartate Amino Transferase 12 U/L (5-31); Bilirubin Total 0.7 mg/dL (0.0-1.0); Blood Urea Nitrogen 19 mg/dL (9-16); Calcium 9.9 mg/dL (8.4-10.2); Carbon Dioxide 23 mmol/L (22-29); Chloride 105 mmol/L (96-108); Creatinine Clr Calc Pharmacy 81.1; Estimated Glomerular Filt Rate > 60; Glucose Random 234 mg/dL (60-115); Lipase 13 U/L (8-78); Potassium 4.5 mmol/L (3.3-5.1); Sodium 140 mmol/L (135-145); Total Protein 7.9 g/dL (6.5-8.0)
[2024-02-10 07:10] LABS: Basophils Percent Auto 0.3 % (0-2); Hematocrit 44.2 % (37.0-47.0); Hemoglobin 15.3 g/dl (12.0-16.0); Lymphocytes Absolute Auto 1.3 X10*3/uL (1.2-4.9); Lymphocytes Percent Auto 12.5 % (20-40); Mean Corpuscular HGB Conc 34.6 g/dl (31.0-35.0); Mean Corpuscular Hemoglobin 31.3 pg (27.0-33.0); Mean Corpuscular Volume 90.4 fL (80.0-98.0); Mean Platelet Volume 11.2 fL (9.4-12.3); Monocytes Absolute Auto 0.5 X10*3/uL (0.1-1.2); Monocytes Percent Auto 4.9 % (2-11); Neutrophils Absolute Auto 8.4 x10*3/uL (2.0-8.3); Neutrophils Percent Auto 81.8 % (45-73); Platelet Count 306 X10*3/uL (160-400); Red Blood Count 4.89 X10*6/uL (4.20-5.50); Red Cell Distribution Width 12.3 % (11.0-16.0); White Blood Count 10.3 X10*3/uL (4.8-10.8)
--- NOTE | 2024-02-10 07:41 | ED_ITS ---
HPI - Abdominal Pain General Chief Complaint: Abdominal Pain Stated Complaint: throwing up / fever Time Seen by Provider: 02/10/24 07:11 Source: patient Mode of arrival: ambulatory History of Present Illness ED Provider: Dr Figueroa HPI narrative: 53-year-old female who presents with mid abdominal discomfort since Saturday that is been intermittent in nature, she has had several episodes of nausea/vomiting/diarrhea, has positive surgical history with hernia repair, subjective fevers and endorses that she continues to pass flatus, she is up-to-date on her colonoscopy. Related Data Home Medications ?Medication ?Instructions ?Recorded ?Confirmed blood sugar diagnostic (FreeStyle #10 ea 01/24/23 Lite Strips) lancets 28 gauge (FreeStyle #100 ea 01/24/23 Lancets) lisinopril 2.5 mg tablet 2.5 mg PO DAILY 01/24/23 metformin 500 mg tablet,extended 500 mg PO DAILY 01/24/23 release 24 hr Previous Rx's ?Medication ?Instructions ?Recorded azithromycin 250 mg tablet 250 mg PO DAILY 4 days #4 tabs 10/22/22 benzonatate 200 mg capsule 200 mg PO TID PRN cough #14 caps 10/22/22 ketorolac 10 mg tablet 10 mg PO Q6H PRN pain 5 days #20 11/15/22 tabs tamsulosin 0.4 mg capsule (Flomax) 0.4 mg PO BEDTIME #4 caps 11/15/22 cyclobenzaprine 10 mg tablet 10 mg PO TID PRN muscle spasm #10 03/27/23 tabs naproxen 500 mg tablet 500 mg PO BID PRN pain #20 tabs 03/27/23 amoxicillin 875 mg-potassium 1 tab PO BID 5 days #10 tabs 02/10/24 clavulanate 125 mg tablet ondansetron 4 mg disintegrating 4 mg PO Q8H PRN nausea and 02/10/24 tablet vomiting 4 days #14 tabs Allergies Allergy/AdvReac Type Severity Reaction Status Date / Time No Known Allergies Allergy Verified 02/10/24 06:15 Review of Systems Review of Systems Pertinent positives and negatives as stated in HPI PMF Past Medical History Source: nursing notes reviewed Medical History Hyperlipidemia Hypertension Diabetes Surgical History Hx of cholecystectomy Social History Social History Alcohol intake: never Smoked in Last 30 Days: No Use of substances other than those prescribed or required for medical reasons: No Advance Directives: No Do you have a plan to hurt others: No Plan Patient : No Physical Exam ED Vital Signs: Vital Signs - 24 hr 02/10/24 06:13 02/10/24 06:45 02/10/24 08:07 Temperature 97.8 F 98.9 F Pulse Rate 121 H 110 H 105 H Respiratory Rate 18 15 18 Blood Pressure 139/90 H 146/103 H 137/85 Pulse Oximetry 93 97 93 Oxygen Delivery Method Room Air Room Air Room Air BMI result Body Mass Index 42.5 VITAL SIGNS: Reviewed. GENERAL: Well developed, well nourished, in no acute distress. HEAD: Normocephalic/atraumatic EYES: PERRLA, EOMI LUNGS: Normal breath sounds. No adventitious sounds or accessory muscle use. SpO2<97> CARDIOVASCULAR: Regular rate and rhythm without noted murmurs ABDOMEN: Soft, mid abdominal pain without rebound, non-distended with bowel sounds. MUSCULOSKELETAL: No tenderness, deformities, or effusions noted on gross inspection. EXTREMITIES: No cyanosis, clubbing or edema. SKIN: Inspection of the skin reveals no rashes NEUROLOGIC: Alert and oriented x 4. Strength and sensation to light touch were grossly intact x 4. Medical Decision Making Medical Decision Making [facility] Narrative: 0725: 53-year-old female who is status post cholecystectomy and has a history and clinical presentation, DDX: Colitis/diverticulitis/lower clinical suspicion for obstruction/UTI. I reviewed all investigations and hematologic indices are negative for leukocytosis/anemia/thrombocytopenia. Chemistry indices are negative for URSZULA/electrolyte or liver enzyme derangements. Urinalysis negative for UTI or hematuria. CT scan demonstrates evidence to suggest an enteritis with circumferential wall thickening/ileitis but otherwise no diverticulitis or obstruction appreciated. Results given to the patient and she will be discharged on antibiotics with strict instructions to follow-up with your primary care doctor and discussion of referral to Gastroenterology. Differential Diagnosis Differential Diagnoses: The differential diagnosis associated with the presentation includes Please see the discussion above Admission/Observation Consideration of admission/observation: Escalation of care including admission/observation considered Please see the discussion above Lab Data MDM Lab Attestation statement: I reviewed the patient's lab results. Please see the discussion above 02/10/24 06:35 02/10/24 06:35 Labs: Lab Results 02/10/24 02/10/24 Range/Units 06:35 07:37 WBC 10.3 (4.8-10.8) X10*3/uL RBC 4.89 D (4.20-5.50) X10*6/uL Hgb 15.3 D (12.0-16.0) g/dl Hct 44.2 D (37.0-47.0) % MCV 90.4 (80.0-98.0) fL MCH 31.3 (27.0-33.0) pg MCHC 34.6 (31.0-35.0) g/dl RDW 12.3 (11.0-16.0) % Plt Count 306 D (160-400) X10*3/uL MPV 11.2 (9.4-12.3) fL Immature Gran % (Auto) 0.4 (0.0-0.4) % Neut % (Auto) 81.8 H (45-73) % Lymph % (Auto) 12.5 L (20-40) % [place] % (Auto) 4.9 (2-11) % Eos % (Auto) 0.1 (0-4) % Baso % (Auto) 0.3 (0-2) % Lymph # (Auto) 1.3 (1.2-4.9) X10*3/uL [place] # (Auto) 0.5 (0.1-1.2) X10*3/uL Eos # (Auto) 0.0 (0.0-0.4) X10*3/uL Baso # (Auto) 0.0 (0.0-0.2) X10*3/uL Abs Immat Gran (auto) 0.04 H (0.00-0.03) X10*3/uL Absolute Neuts (auto) 8.4 H (2.0-8.3) x10*3/uL Absolute Nucleated RBC 0.000 (0.0-0.012) X10*3/uL Nucleated RBC % (auto) 0.0 (0.0-0.2) /100WBC Sodium 140 (135-145) mmol/L Potassium 4.5 (3.3-5.1) mmol/L Chloride 105 (96-108) mmol/L Carbon Dioxide 23 (22-29) mmol/L Anion Gap 17 (12-20) BUN 19 H (9-16) mg/dL Creatinine 0.86 (0.5-1.4) mg/dL Estim Creat Clear Calc 81.1 Estimated GFR > 60 Random Glucose 234 H (60-115) mg/dL Calcium 9.9 (8.4-10.2) mg/dL Total Bilirubin 0.7 (0.0-1.0) mg/dL AST 12 (5-31) U/L ALT 15 (0-31) U/L Alkaline Phosphatase 74 (39-117) U/L Total Protein 7.9 (6.5-8.0) g/dL Albumin 4.6 (3.5-5.0) g/dL Lipase 13 (8-78) U/L Urine Color Yellow Urine Appearance Cloudy Urine pH 5.0 (5.0-9.0) Ur Specific [place] >= 1.030 H (1.005-1.025) Urine Protein 30 (1+) H (Neg-Trace) mg/dL Urine Glucose (UA) Negative (Negative) mg/dL Urine Ketones 15 (Negative) mg/dL Urine Blood Negative (Negative) Urine Nitrite Negative (Negative) Ur Leukocyte Esterase Negative (Negative) Urine RBC 0-2 (0-2) /HPF Urine WBC 0-5 (0-5) /HPF Ur Squamous Epith Cells 3-5 (0-2) /HPF Other Crystals Present Urine Bacteria None Seen (None Seen) Hyaline Casts 0-2 (0-2) /LPF Independent Interpretation I performed an independent interpretation of an: EKG Interpretation: Sinus tachycardia, HR-114, no STEMI, IN/QRS/QTC is within normal limits. Radiology Impression Discussion of test interpretation with radiology: I have reviewed the radiologist's reading. Radiologist Impression: Please see the discussion above External Record Review External record reviewed: Outpatient record and Prior outpatient labs Medications Administered Generic Name Dose Route Start Last Admin Trade Name Freq PRN Reason Stop Dose Admin Sodium Chloride 1,000 mls @ 999 mls/hr 02/10/24 08:00 05/27/24 08:06 Ns IV 02/10/24 09:00 999 mls/hr .Q1H1M ALLEY Administration Discontinued Medications Generic Name Dose Route Start Last Admin Trade Name Freq PRN Reason Stop Dose Admin Iohexol 100 ml 02/10/24 08:16 02/10/24 08:16 Iohexol 350 Mg/Ml 100 Ml Infus..Btl IV 02/10/24 08:17 85 ml ONCE ONE Administration Ondansetron HCl 4 mg 02/10/24 07:59 02/10/24 08:06 Ondansetron Hcl 4 Mg/2 Ml Vial IVPUSH 02/10/24 08:00 4 mg ONCE ONE Administration Critical Care Time Critical Care Time Critical Care Time: Yes Total Critical Care Time: 30 Attestation: I personally attest to this time spent taking care of the patient. Discharge Plan Discharge Clinical Impression: Ileitis Patient Disposition: Home, Self-Care Instructions: Gastroenteritis (ED), Enteritis (ED), Nutrition Tips for Relief of Diarrhea (ED) Additional Instructions: 1. Resume all home medications as prescribed. 2. Complete the entire course of antibiotics as prescribed. 3. Follow-up with your primary care doctor in the next 2-3 days for re- evaluation further outpatient management, this may involve a referral to Gastroenterology. Return to the ER for any worsening symptoms. Prescriptions: New amoxicillin-pot clavulanate 875-125 mg tablet 1 tab PO BID 5 Days Qty: 10 0RF ondansetron 4 mg tablet,disintegrating 4 mg PO Q8H PRN (Reason: nausea and vomiting) 4 Days Qty: 14 0RF No Action ketorolac 10 mg tablet 10 mg PO Q6H PRN (Reason: pain) 5 Days Qty: 20 0RF Rx Instructions: Patient received Toradol in the emergency room. tamsulosin [Flomax] 0.4 mg capsule 0.4 mg PO BEDTIME Qty: 4 0RF azithromycin 250 mg tablet 250 mg PO DAILY 4 Days Qty: 4 0RF Rx Instructions: start on day 2 of therapy benzonatate 200 mg capsule 200 mg PO TID PRN (Reason: cough) Qty: 14 0RF cyclobenzaprine 10 mg tablet 10 mg PO TID PRN (Reason: muscle spasm) Qty: 10 0RF naproxen 500 mg tablet 500 mg PO BID PRN (Reason: pain) Qty: 20 0RF metformin 500 mg tablet extended release 24 hr 500 mg PO DAILY lisinopril 2.5 mg tablet 2.5 mg PO DAILY (DME) lancets [FreeStyle Lancets] 28 gauge misc See Rx Instructions .ROUTE DAILY Qty: 100 Rx Instructions: As directed (DME) FreeStyle Lite Strips Strip See Rx Instructions .ROUTE DAILY Qty: 10 Rx Instructions: As directed Print Language: [place]
[2024-02-10 07:45] LABS: Appearance Urine Cloudy; Color Urine Yellow; Glucose Urine UA Negative (Negative); Leukocyte Esterase Urine Negative (Negative); Nitrite Urine Negative (Negative); Specific Gravity - Urine >= 1.030 (1.005-1.025); UMIC TRIGGER UACC YES; Urine Blood Negative (Negative); Urine Ketones 15 mg/dL (Negative); Urine Protein 30 (1+) mg/dL (Neg-Trace)
[2024-02-10 07:57] LABS: Bacteria Urine None Seen (None Seen); Hyaline Casts Urine 0-2 /LPF (0-2); Other Crystals Urine Present; RBC Urine 0-2 /HPF (0-2); WBC Urine 0-5 /HPF (0-5)
[2024-02-10] MEDS: ondansetron HCL 4 MG/2 ML VIAL IVPUSH (08:06)
[2024-02-10] MEDS: 0.9 % Sodium Chloride 1,000 ML 999 ML IV (08:06)
[2024-02-10 08:07] VITALS: BP 137/85; PULSE 105; RESP 18; O2SAT 93
[2024-02-10] MEDS: iohexoL 350 MG/ML 100 ML INFUS..BTL IV (08:16)
[2024-02-10 08:57] VITALS: BP 137/85; PULSE 105; RESP 18; TEMP 37.2; O2SAT 93
[2024-02-10] MEDS: Ketorolac Tromethamine 30 MG/ML VIAL 15 MG IVPUSH (09:04)
[2024-02-10] MEDS: Amoxicillin/Potassium Clav 875 MG TABLET PO (09:04)
== END 2024-02-10 09:11 | disposition home or self-care (01) ==
PROVIDERS: Emergency Provider Student in an Organized Health Care Education/Training Program
DX: K52.9 Noninfective gastroenteritis and colitis, unspecified (principal); I10 Essential (primary) hypertension; E11.9 Type 2 diabetes mellitus without complications; Z90.49 Acquired absence of other specified parts of digestive tract
CPT/HCPCS: 36415; 74177; 80053; 81001; 83690; 85025; 93005; 96361; 96374; 96375; 99285; J1885; J2405; Q9967

== ENCOUNTER → 2024-02-10 06:43 | Outpatient (BNV) | payer OTHER, SELFPAY | PROVIDERS: Emergency Provider Student in an Organized Health Care Education/Training Program; Visit Provider Internal Medicine Cardiovascular Disease | DX: R94.31 Abnormal electrocardiogram [ECG] [EKG] (principal) | CPT/HCPCS: 93010 ==

== ENCOUNTER 2024-03-12 10:09 | Emergency (ER) | payer OTHER, SELFPAY ==
--- NOTE | ~2024-03-12 | XR_ITS ---
EXAMINATION: XR CHEST 2 VIEW CLINICAL INFORMATION: Chest pain COMPARISON: 10/22/2022 TECHNIQUE: PA and lateral views of the chest obtained. FINDINGS: The lungs are clear. There are no pleural effusions. The cardiomediastinal silhouette is normal. XR/XR chest 2V IMPRESSION: No acute cardiopulmonary disease.
--- NOTE | 2024-03-12 10:09 | ECG_ITS ---
Test Reason : chest pain Blood Pressure : / mmHG Vent. Rate : 097 BPM Atrial Rate : 097 BPM P-R Int : 168 ms QRS Dur : 084 ms QT Int : 346 ms P-R-T Axes : 059 013 024 degrees QTc Int : 439 ms Normal sinus rhythm Right atrial enlargement Borderline ECG When compared with ECG of 10-FEB-2024 06:45, No significant change was found Referred By: Generic ED Physician Electronically Signed By:ANGY YUN MD
[2024-03-12 10:21] VITALS: BP 169/94; PULSE 96; RESP 18; TEMP 36.6; O2SAT 97; BMI 41.7
[2024-03-12 10:38] LABS: MANUAL DIFF FLAG NO
[2024-03-12 10:42] LABS: Basophils Percent Auto 0.4 % (0-2); Eosinophils Absolute Auto 0.1 X10*3/uL (0.0-0.4); Eosinophils Percent Auto 1.7 % (0-4); Hematocrit 36.3 % (37.0-47.0); Hemoglobin 12.8 g/dl (12.0-16.0); Imm Gran Abs Auto 0.01 X10*3/uL (0.00-0.03); Imm Gran Pct Auto 0.2 % (0.0-0.4); Lymphocytes Absolute Auto 1.5 X10*3/uL (1.2-4.9); Lymphocytes Percent Auto 31.8 % (20-40); Mean Corpuscular HGB Conc 35.3 g/dl (31.0-35.0); Mean Corpuscular Hemoglobin 31.8 pg (27.0-33.0); Mean Corpuscular Volume 90.1 fL (80.0-98.0); Mean Platelet Volume 10.5 fL (9.4-12.3); Monocytes Absolute Auto 0.3 X10*3/uL (0.1-1.2); Monocytes Percent Auto 6.4 % (2-11); Neutrophils Absolute Auto 2.8 x10*3/uL (2.0-8.3); Neutrophils Percent Auto 59.5 % (45-73); Platelet Count 195 X10*3/uL (160-400); Red Blood Count 4.03 X10*6/uL (4.20-5.50); Red Cell Distribution Width 12.1 % (11.0-16.0); White Blood Count 4.7 X10*3/uL (4.8-10.8)
[2024-03-12 10:51] LABS: Anion Gap 11 (12-20); Blood Urea Nitrogen 16 mg/dL (9-16); Calcium 9.5 mg/dL (8.4-10.2); Carbon Dioxide 27 mmol/L (22-29); Chloride 108 mmol/L (96-108); Creatinine Clr Calc Pharmacy 99.9; Estimated Glomerular Filt Rate > 60; Glucose Random 157 mg/dL (60-115); Potassium 4.3 mmol/L (3.3-5.1); Sodium 142 mmol/L (135-145)
[2024-03-12 11:25] LABS: Troponin-I High Sensitivity < 2.7 ng/L (<3.5-17.0)
--- NOTE | 2024-03-12 13:37 | ED_ITS ---
HPI - Chest Pain General Chief Complaint: Chest Pain Stated Complaint: chest pain Time Seen by Provider: 03/12/24 14:18 Source: patient Mode of arrival: ambulatory Limitations: no limitations History of Present Illness ED Provider: heidi SOARES narrative: Patient is a 53-year-old female with T2 dm presenting to the emergency department with complaint of anterior chest pain for the past 4 days. States yesterday pain began to radiate towards left shoulder and down left arm. States pain is worse with movement of left arm or shoulder. States pain was present when she woke 4 days ago. Has been taking Tylenol and ibuprofen with little relief. 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 Also complains of spasming in upper back. Denies cough, wheezing, dyspnea, fevers. MD complaint: chest pain Onset (ago): day(s) Timing of current episode: constant Prior episodes: No Onset: during rest Pain location: left chest and right chest Pain radiation: left arm Severity: moderate Quality: aching Exacerbating factors: movement Treatment prior to arrival: other (Tylenol/ibuprofen) Related Data Home Medications ?Medication ?Instructions ?Recorded ?Confirmed blood sugar diagnostic (FreeStyle #10 ea 01/24/23 Lite Strips) lancets 28 gauge (FreeStyle #100 ea 01/24/23 Lancets) lisinopril 2.5 mg tablet 2.5 mg PO DAILY 01/24/23 metformin 500 mg tablet,extended 500 mg PO DAILY 01/24/23 release 24 hr Previous Rx's ?Medication ?Instructions ?Recorded azithromycin 250 mg tablet 250 mg PO DAILY 4 days #4 tabs 10/22/22 benzonatate 200 mg capsule 200 mg PO TID PRN cough #14 caps 10/22/22 ketorolac 10 mg tablet 10 mg PO Q6H PRN pain 5 days #20 11/15/22 tabs tamsulosin 0.4 mg capsule (Flomax) 0.4 mg PO BEDTIME #4 caps 11/15/22 cyclobenzaprine 10 mg tablet 10 mg PO TID PRN muscle spasm #10 03/27/23 tabs naproxen 500 mg tablet 500 mg PO BID PRN pain #20 tabs 03/27/23 amoxicillin 875 mg-potassium 1 tab PO BID 5 days #10 tabs 02/10/24 clavulanate 125 mg tablet ondansetron 4 mg disintegrating 4 mg PO Q8H PRN nausea and 02/10/24 tablet vomiting 4 days #14 tabs Allergies Allergy/AdvReac Type Severity Reaction Status Date / Time No Known Allergies Allergy Verified 03/12/24 10:23 Review of Systems 2 Review of Systems: As per hpi. Yes all other systems are reviewed and are negative [facility] Past Medical History Medical History Hyperlipidemia Hypertension Diabetes Surgical History Hx of cholecystectomy Social History Social History Alcohol intake: never Advance Directives: No Advance Directives Information Provided: Yes Physical Exam 2 Vital Signs: Vital Signs: Last Vital Signs Temp 98.0 F 03/12/24 15:15 Pulse 84 03/12/24 15:15 Resp 16 03/12/24 15:15 BP 163/101 H 03/12/24 15:15 Pulse Ox 95 03/12/24 15:15 O2 Del Method Room Air 03/12/24 15:15 BMI result Body Mass Index 41.7 Course Course Course Narrative: This is an RME: Additional HPI, ROS, PE not included below will be deferred to primary provider. RME assessment and note performed by: Danyelle Romeo PA-C This is a [id number]-female, with a hx of diabetes and HTN, who presents to the ER with a complaint of chest pain x4 days. Patient denies any recent trauma or injury. 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 She states that the pain is constant and worsens with coughing. Denies any recent illness. No recent travel, hospitalizations, surgeries. No history of blood clots or cancer history. Plan: Labs, EKG, chest x-ray. Repeat EKG was ordered as 1st one had a poor capture. First troponin negative, will repeat. Medical Decision Making Medical Decision Making MDM Narrative: Patient is a 53-year-old female with T2 dm presenting to the emergency department with complaint of anterior chest pain for the past 4 days. On exam patient is awake, A+Ox3, VS WNL, afebrile, normal neurological exam without focal deficits, physical exam findings as above. Given reported symptoms and physical exam findings, initial differential includes musculoskeletal chest pain, costochondritis. Less likely ACS. Unlikely PE, Wells score of 0. Labs notable for negative troponin x 2, no other significant abnormalities. X-ray chest notable for no cardiomegaly, pneumonia, pneumothorax. My interpretation is in agreement with the radiologist's interpretation. EKG shows normal sinus rhythm. HEART score of 2. Feel patient is stable for discharge home, likely musculoskeletal. Instructed patient to follow up with PCP. Return precautions discussed at bedside. Patient verbalized understanding of and agreement with plan. Differential Diagnosis Differential Diagnoses: The differential diagnosis associated with the presentation includes As per [facility] Lab Data [facility] Lab Attestation statement: I reviewed the patient's lab results. As per [facility] 03/12/24 10:33 03/12/24 10:33 Labs: Lab Results 03/12/24 03/12/24 Range/Units 10:33 14:12 WBC 4.7 L (4.8-10.8) X10*3/uL RBC 4.03 L (4.20-5.50) X10*6/uL Hgb 12.8 (12.0-16.0) g/dl Hct 36.3 L (37.0-47.0) % MCV 90.1 (80.0-98.0) fL MCH 31.8 (27.0-33.0) pg MCHC 35.3 H (31.0-35.0) g/dl RDW 12.1 (11.0-16.0) % Plt Count 195 D (160-400) X10*3/uL MPV 10.5 (9.4-12.3) fL Immature Gran % (Auto) 0.2 (0.0-0.4) % Neut % (Auto) 59.5 (45-73) % Lymph % (Auto) 31.8 (20-40) % Baldwin % (Auto) 6.4 (2-11) % Eos % (Auto) 1.7 (0-4) % Baso % (Auto) 0.4 (0-2) % Lymph # (Auto) 1.5 (1.2-4.9) X10*3/uL Baldwin # (Auto) 0.3 (0.1-1.2) X10*3/uL Eos # (Auto) 0.1 (0.0-0.4) X10*3/uL Baso # (Auto) 0.0 (0.0-0.2) X10*3/uL Abs Immat Gran (auto) 0.01 (0.00-0.03) X10*3/uL Absolute Neuts (auto) 2.8 (2.0-8.3) x10*3/uL Absolute Nucleated RBC 0.000 (0.0-0.012) X10*3/uL Nucleated RBC % (auto) 0.0 (0.0-0.2) /100WBC Sodium 142 (135-145) mmol/L Potassium 4.3 (3.3-5.1) mmol/L Chloride 108 (96-108) mmol/L Carbon Dioxide 27 (22-29) mmol/L Anion Gap 11 L (12-20) BUN 16 (9-16) mg/dL Creatinine 0.69 (0.5-1.4) mg/dL Estim Creat Clear Calc 99.9 Estimated GFR > 60 Random Glucose 157 H (60-115) mg/dL Calcium 9.5 (8.4-10.2) mg/dL Troponin I High Sens < 2.7 < 2.7 (<3.5-17.0) ng/L Independent Interpretation I performed an independent interpretation of an: EKG (1) normal sinus rhythm, rate 97bpm, normal IN interval and QT, no changes from prior, 2) normal sinus rhythm, rate 84bpm, normal IN interval and QTC, no changes from initial EKG ) and Plain X-Ray Interpretation: X-ray chest notable for no cardiomegaly, pneumonia, pneumothorax. Radiology Impression Discussion of test interpretation with radiology: I have reviewed the radiologist's reading. Radiologist Impression: XR/XR chest 2V IMPRESSION: No acute cardiopulmonary disease. External Record Review External record reviewed: Inpatient record, Office record and Outpatient record Scores Heart Score History: -0- slightly suspicious ECG: -0- normal Age: -1- >45 - <65 Risk factory: -1- 1 or 2 risk factors Troponin: -0- < or = normal limit Score: 2 Risk: 1.7% Discharge Plan Discharge Clinical Impression: Atypical chest pain Patient Disposition: Home, Self-Care Instructions: Chest Pain (DC), Thoracic Pain (ED), Noncardiac Chest Pain (ED), Chest Wall Pain (ED) Additional Instructions: You were evaluated in the emergency department today for chest pain. 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 Please schedule an appointment for follow-up with your primary care physician as soon as possible. Return to the emergency department if you experience worsening or uncontrolled chest pain, shortness of breath, lightheadedness, feeling faint, loss of consciousness, nausea, vomiting, or any other concerning symptoms. Prescriptions: No Action ketorolac 10 mg tablet 10 mg PO Q6H PRN (Reason: pain) 5 Days Qty: 20 0RF Rx Instructions: Patient received Toradol in the emergency room. tamsulosin [Flomax] 0.4 mg capsule 0.4 mg PO BEDTIME Qty: 4 0RF azithromycin 250 mg tablet 250 mg PO DAILY 4 Days Qty: 4 0RF Rx Instructions: start on day 2 of therapy benzonatate 200 mg capsule 200 mg PO TID PRN (Reason: cough) Qty: 14 0RF cyclobenzaprine 10 mg tablet 10 mg PO TID PRN (Reason: muscle spasm) Qty: 10 0RF naproxen 500 mg tablet 500 mg PO BID PRN (Reason: pain) Qty: 20 0RF amoxicillin-pot clavulanate 875-125 mg tablet 1 tab PO BID 5 Days Qty: 10 0RF ondansetron 4 mg tablet,disintegrating 4 mg PO Q8H PRN (Reason: nausea and vomiting) 4 Days Qty: 14 0RF metformin 500 mg tablet extended release 24 hr 500 mg PO DAILY lisinopril 2.5 mg tablet 2.5 mg PO DAILY (DME) lancets [FreeStyle Lancets] 28 gauge misc See Rx Instructions .ROUTE DAILY Qty: 100 Rx Instructions: As directed (DME) FreeStyle Lite Strips Strip See Rx Instructions .ROUTE DAILY Qty: 10 Rx Instructions: As directed Print Language: Mongolian
[2024-03-12 13:38] VITALS: BP 166/103; PULSE 91; RESP 18; TEMP 36.6; O2SAT 96
--- NOTE | 2024-03-12 13:40 | ECG_ITS ---
Test Reason : CHEST PAIN Blood Pressure : / mmHG Vent. Rate : 084 BPM Atrial Rate : 084 BPM P-R Int : 176 ms QRS Dur : 094 ms QT Int : 384 ms P-R-T Axes : 024 002 016 degrees QTc Int : 453 ms Normal sinus rhythm Minimal voltage criteria for LVH, may be normal variant ( [place] product ) Possible Inferior infarct , age undetermined Abnormal ECG When compared with ECG of 12-MAR-2024 10:13, No significant change was found Referred By: Danyelle Romeo Electronically Signed By:ANGY YUN MD
[2024-03-12 14:40] LABS: Troponin-I High Sensitivity < 2.7 ng/L (<3.5-17.0)
[2024-03-12 15:15] VITALS: BP 163/101; PULSE 84; RESP 16; TEMP 36.7; O2SAT 95
[2024-03-12 15:26] VITALS: BP 160/98; PULSE 73; RESP 18; TEMP 36.7; O2SAT 98
== END 2024-03-12 15:27 | disposition home or self-care (01) ==
PROVIDERS: Emergency Provider Emergency Medicine
DX: R07.89 Other chest pain (principal); E11.8 Type 2 diabetes mellitus with unspecified complications; I10 Essential (primary) hypertension; E78.5 Hyperlipidemia, unspecified; Z79.84 Long term (current) use of oral hypoglycemic drugs; Z79.899 Other long term (current) drug therapy
CPT/HCPCS: 36415; 71046; 80048; 84484; 85025; 93005; 99283; 99284

== ENCOUNTER → 2024-03-12 10:09 | Outpatient (BNV) | payer OTHER, SELFPAY | PROVIDERS: Emergency Provider Emergency Medicine; Visit Provider Internal Medicine Cardiovascular Disease | DX: R07.9 Chest pain, unspecified (principal); R94.31 Abnormal electrocardiogram [ECG] [EKG] | CPT/HCPCS: 93010 ==

== ENCOUNTER 2024-05-07 22:16 | Emergency (ER) | payer OTHER, SELFPAY ==
--- NOTE | ~2024-05-07 | CT_ITS ---
EXAMINATION: CT ABDOMEN AND PELVIS WITHOUT CONTRAST CLINICAL INFORMATION: n/v abd pain COMPARISON: CT abdomen and pelvis 02/10/2024. TECHNIQUE: Multidetector volumetric imaging was performed from the superior aspect of the liver through the pubic symphysis. Sagittal and coronal reformatted images were obtained on the technologist's workstation. This CT examination was performed using dose optimization techniques as appropriate, variously including the following: *Automated exposure control *Adjustment of mA and/or kV according to patient size (this includes techniques or standardized protocols for targeted exams where dose is matched to indication/reason for exam; i.e. extremities or head) *Use of iterative reconstruction technique DLP: 953 mGy-cm FINDINGS: LUNG BASES: No suspicious lung nodules. LIVER, GALLBLADDER, AND BILIARY TREE: Enlarged liver measuring 19 cm right lobe length. Diffuse low-attenuation consistent with steatosis. No discrete liver mass. No biliary ductal dilatation. Cholecystectomy. PANCREAS: No discrete mass or ductal dilatation. SPLEEN: The spleen is normal in size. ADRENAL GLANDS: No visible adrenal mass. KIDNEYS AND URETERS: Punctate nonobstructing calculus mid left kidney. 8.3 cm from posterolateral skin surface. No hydronephrosis. BLADDER: Decompressed and not well evaluated. GASTROINTESTINAL TRACT: There is long segment circumferential wall thickening, edema and surrounding mesenteric fat stranding involving a long segment of mid small bowel. There is no evidence of bowel obstruction. No pneumatosis or portal venous gas. Small volume of simple density free fluid in the pelvis. Moderate colonic diverticulosis without evidence of acute diverticulitis. ABDOMINAL WALL: There are 2 adjacent fat-containing supraumbilical hernias immediately above the umbilicus. LYMPH NODES: No pathologically enlarged lymph nodes. VASCULAR: No aortic aneurysm. PELVIC VISCERA: Unremarkable. OSSEOUS STRUCTURES: Degenerative changes in the spine. No destructive osseous lesions. CT/CT abdomen pelvis wo IV con IMPRESSION: Recurrent nonspecific long segment enteritis. Small volume of free fluid in the pelvis is likely reactive. No evidence of bowel obstruction. Other chronic and incidental findings as above. Fleischner guidelines were followed. Electronically signed by: Dominguez Hogan MD 05/08/2024 12:41 PM EDT
[2024-05-07 22:30] VITALS: BP 134/81; PULSE 110; RESP 22; TEMP 36.5; O2SAT 97; BMI 40.8
[2024-05-07 23:30] LABS: Hematocrit 43.8 % (37.0-47.0); Hemoglobin 15.4 g/dl (12.0-16.0); Mean Corpuscular HGB Conc 35.2 g/dl (31.0-35.0); Mean Corpuscular Hemoglobin 31.6 pg (27.0-33.0); Mean Corpuscular Volume 89.9 fL (80.0-98.0); Mean Platelet Volume 10.4 fL (9.4-12.3); Platelet Count 271 X10*3/uL (160-400); Red Blood Count 4.87 X10*6/uL (4.20-5.50); Red Cell Distribution Width 12.2 % (11.0-16.0); White Blood Count 11.6 X10*3/uL (4.8-10.8)
[2024-05-07 23:44] LABS: Alanine Aminotransferase 21 U/L (0-31); Albumin Level 4.6 g/dL (3.5-5.0); Alkaline Phosphatase 86 U/L (39-117); Anion Gap 15 (12-20); Aspartate Amino Transferase 17 U/L (5-31); Bilirubin Total 0.7 mg/dL (0.0-1.0); Blood Urea Nitrogen 17 mg/dL (9-16); Carbon Dioxide 24 mmol/L (22-29); Chloride 103 mmol/L (96-108); Creatinine Clr Calc Pharmacy 80.1; Estimated Glomerular Filt Rate > 60; Glucose Random 249 mg/dL (60-115); Lipase 12 U/L (8-78); Potassium 5.7 mmol/L (3.3-5.1); Sodium 136 mmol/L (135-145)
[2024-05-08 00:06] LABS: Influenza A PCR NEGATIVE (Negative); Influenza B PCR NEGATIVE (Negative); Resp Syncy Virus RNA Qual PCR NEGATIVE (Negative); SARS COV2 PCR INHOUSE NEGATIVE (Negative)
[2024-05-08 02:54] VITALS: BP 156/91; PULSE 115; RESP 20; TEMP 36.6; O2SAT 96
[2024-05-08 05:05] VITALS: BP 128/79; PULSE 109; RESP 18; TEMP 36.8; O2SAT 93
--- NOTE | 2024-05-08 07:06 | ED.GENADULT ---
HPI - General Adult General Chief complaint: Abdominal Pain Stated complaint: ? allergic reaction to nuts Time Seen by Provider: 05/08/24 06:44 Source: patient Mode of arrival: ambulatory Limitations: no limitations History of Present Illness ED Provider: Dana KOHLI HPI narrative: 53-year-old female history of hypertension, hyperlipidemia presents with suspected allergic reaction to morphine she reports she ate running a muffin 9 hours ago/just prior to her arrival, the muffin had walnuts in it, she reports last time she had a muffin she had a similar reaction this time she started having immediate nausea, vomiting, diarrhea and abdominal pain. She reports last week something similar happened however that time she had a rash. Now there is no rash. After the symptoms started she took Benadryl with little to no relief. She has not yet seen an accreditation specialist. Denies chest pain, shortness of breath, difficulty swallowing, changes in voice, drooling, rash, headache, vision changes, dizziness, weakness, fevers and chills. Related Data Home Medications ?Medication ?Instructions ?Recorded ?Confirmed blood sugar diagnostic (FreeStyle #10 ea 01/24/23 Lite Strips) lancets 28 gauge (FreeStyle #100 ea 01/24/23 Lancets) lisinopril 2.5 mg tablet 2.5 mg PO DAILY 01/24/23 metformin 500 mg tablet,extended 500 mg PO DAILY 01/24/23 release 24 hr Previous Rx's ?Medication ?Instructions ?Recorded azithromycin 250 mg tablet 250 mg PO DAILY 4 days #4 tabs 10/22/22 benzonatate 200 mg capsule 200 mg PO TID PRN cough #14 caps 10/22/22 ketorolac 10 mg tablet 10 mg PO Q6H PRN pain 5 days #20 11/15/22 tabs tamsulosin 0.4 mg capsule (Flomax) 0.4 mg PO BEDTIME #4 caps 11/15/22 cyclobenzaprine 10 mg tablet 10 mg PO TID PRN muscle spasm #10 03/27/23 tabs naproxen 500 mg tablet 500 mg PO BID PRN pain #20 tabs 03/27/23 amoxicillin 875 mg-potassium 1 tab PO BID 5 days #10 tabs 02/10/24 clavulanate 125 mg tablet ondansetron 4 mg disintegrating 4 mg PO Q8H PRN nausea and 02/10/24 tablet vomiting 4 days #14 tabs diphenhydramine HCl 25 mg capsule 25 mg PO TID PRN allergic reaction 05/08/24 (Benadryl) #20 caps epinephrine 0.3 mg/0.3 mL 0.3 mg (0.3 mL) IM Q4H PRN 05/08/24 injection, auto-injector (EpiPen anaphylaxis #2 ea 2-Sánchez) prednisone 20 mg tablet 20 mg PO DAILY 5 days #5 tabs 05/08/24 Allergies Allergy/AdvReac Type Severity Reaction Status Date / Time No Known Allergies Allergy Verified 05/07/24 22:32 [facility] Past Medical History Attestation statement: The following information was validated with the patient. Source: old records reviewed and nursing notes reviewed Medical History Hyperlipidemia Hypertension Diabetes Surgical History Hx of cholecystectomy Social History Social History Alcohol intake: never Smoked in Last 30 Days: No Use of substances other than those prescribed or required for medical reasons: No Advance Directives: No Advance Directives Information Provided: Yes Do you have a plan to hurt others: No Plan Patient : No Physical Exam ED Vital Signs: Vital Signs - 24 hr 05/07/24 22:30 05/08/24 02:54 05/08/24 05:05 Temperature 97.7 F 97.9 F 98.3 F Pulse Rate 110 H 115 H 109 H Respiratory Rate 22 H 20 18 Blood Pressure 134/81 156/91 H 128/79 Pulse Oximetry 97 96 93 Oxygen Delivery Method Room Air Room Air Room Air 05/08/24 07:28 05/08/24 11:20 Temperature 98.1 F 98.0 F Pulse Rate 107 H 98 Respiratory Rate 20 18 Blood Pressure 143/96 H 136/77 Pulse Oximetry 94 92 Oxygen Delivery Method Room Air Room Air BMI result Body Mass Index 40.8 Vital signs stable. Appearance: Alert.? Oriented X3.? No acute distress.? Head: Normocephalic, atraumatic, no step-offs or deformities Eyes: Pupils equal, round and reactive to light.? ENT: Pharynx normal.? No edema hard or soft palate, lips, uvula, tongue. Patient is speaking in full sentences controlling secretions well. Neck: Normal inspection.? Neck supple.? CVS: Normal heart rate and rhythm.? Pulses normal.? Respiratory: No respiratory distress.? Breath sounds normal.? Abdomen: Soft and nontender.? Skin: Skin warm and dry.? Normal skin color.? Normal skin turgor.? Extremities: No lower extremity edema.? No calf ttp. 5/5 strength to bilateral upper and lower extremities Neuro: Oriented X 3.? No motor deficit.? No sensory deficit. CN 2-12 intact Course Reevaluation(s) Reevaluation #1: CBC with leukocytosis 11.6. Chemistry with elevated potassium 5.7, low, ordered. Patient's BUN 17 creatinine 0.85 she is tolerating p.o. fluids no need for IV hydration at this time. Flu, COVID, RSV negative. UA, ct, EKG scan pending Time: 07:11 Reevaluation #2: UA without infection. EKG nonischemic no hyperkalemic changes. CT scan recurrent nonspecific long segment enteritis will have her follow-up with GI. She is tolerating p.o.. This is likely reactive enteritis, unlikely bacterial. No signs of bowel obstruction. Patient feeling much better. Requesting work note which will be provided. Long conversation about proper use of EpiPen, she will follow up with accreditation specialist. Educated patient on diagnosis and treatment plan, answered all question, patient verbalizes understanding. At this time patient will be discharged home, advised to return with new or worsening symptoms. Educated on worrisome signs and symptoms and when to return. At this time I feel comfortable discharge home. Time: 12:50 Medications Administered Discontinued Medications Generic Name Dose Route Start Last Admin Trade Name Freq PRN Reason Stop Dose Admin Dexamethasone Sodium Phosphate 10 mg 05/08/24 07:06 05/08/24 08:33 Dexamethasone Sod Phosphate 10 Mg/Ml Vial IVPUSH 05/08/24 07:07 10 mg ONCE ONE Administration Sodium Zirconium Cyclosilicate 10 gm 05/08/24 08:21 05/08/24 08:33 Sodium Zirconium Cyclosilicate 10 Gm Powd.Pack PO 05/08/24 08:22 10 gm ONCE ONE Administration Medical Decision Making Medical Decision Making [facility] Narrative: 53-year-old female presents with suspected allergic reaction to muffin reports nausea, vomiting, abdominal pain, not the 1st time this has happened with a muffin. Physical exam benign. Patent airway. Patient appears well. Vital signs stable. Likely allergic reaction unlikely acute anaphylaxis. No signs of acute threat to airway, unlikely metabolic derangements. I do not suspect acute abdomen appendicitis, cholecystitis, diverticulitis or obstruction. Viral illness still a possibility Plan patient has been observed for 9 hours in the emergency department will give a dose of Decadron and discharge patient home with epi pens and allergy follow-up. I did go over strictly with patient how to use an EpiPen and to return to the emergency department after use. Differential Diagnosis Differential Diagnoses: The differential diagnosis associated with the presentation includes Likely allergic reaction unlikely acute anaphylaxis. No signs of acute threat to airway, unlikely metabolic derangements. I do not suspect acute abdomen appendicitis, cholecystitis, diverticulitis or obstruction.Viral illness still a possibility Admission/Observation Consideration of admission/observation: Escalation of care including admission/observation considered Lab Data [facility] Lab Attestation statement: I reviewed the patient's lab results. 05/07/24 23:25 05/07/24 23:25 Labs: Lab Results 05/07/24 05/08/24 Range/Units 23:25 09:02 WBC 11.6 H (4.8-10.8) X10*3/uL RBC 4.87 D (4.20-5.50) X10*6/uL Hgb 15.4 D (12.0-16.0) g/dl Hct 43.8 D (37.0-47.0) % MCV 89.9 (80.0-98.0) fL MCH 31.6 (27.0-33.0) pg MCHC 35.2 H (31.0-35.0) g/dl RDW 12.2 (11.0-16.0) % Plt Count 271 D (160-400) X10*3/uL MPV 10.4 (9.4-12.3) fL Absolute Nucleated RBC 0.000 (0.0-0.012) X10*3/uL Nucleated RBC % (auto) 0.0 (0.0-0.2) /100WBC Sodium 136 (135-145) mmol/L Potassium 5.7 H D (3.3-5.1) mmol/L Chloride 103 (96-108) mmol/L Carbon Dioxide 24 (22-29) mmol/L Anion Gap 15 (12-20) BUN 17 H (9-16) mg/dL Creatinine 0.85 (0.5-1.4) mg/dL Estim Creat Clear Calc 80.1 Estimated GFR > 60 Random Glucose 249 H (60-115) mg/dL Calcium 10.0 (8.4-10.2) mg/dL Total Bilirubin 0.7 (0.0-1.0) mg/dL AST 17 (5-31) U/L ALT 21 (0-31) U/L Alkaline Phosphatase 86 (39-117) U/L Total Protein 8.0 (6.5-8.0) g/dL Albumin 4.6 (3.5-5.0) g/dL Lipase 12 (8-78) U/L Urine Color Yellow Urine Appearance Clear Urine pH 5.5 (5.0-9.0) Ur Specific [place] >= 1.030 H (1.005-1.025) Urine Protein Trace (Neg-Trace) mg/dL Urine Glucose (UA) Negative (Negative) mg/dL Urine Ketones Trace (Negative) mg/dL Urine Blood Negative (Negative) Urine Nitrite Negative (Negative) Ur Leukocyte Esterase Negative (Negative) Influenza Type A (PCR) NEGATIVE (Negative) Influenza Type B (PCR) NEGATIVE (Negative) RSV RNA Qual (PCR) NEGATIVE (Negative) SARS-CoV-2 RNA (RT-PCR) NEGATIVE (Negative) Independent Interpretation I performed an independent interpretation of an: EKG (Vent. Rate : 110 BPM Atrial Rate : 110 BPM P-R Int : 160 ms QRS Dur : 084 ms QT Int : 342 ms P-R-T Axes : 021 025 031 degrees QTc Int : 462 ms Sinus tachycardia Otherwise normal ECG When compared with ECG of 12-MAR-2024 13:42, Borderline criteria for Inferior infarct a) External Record Review External record reviewed: Office record and Outpatient record Tests considered The following testing was considered but not selected: No abd tenderness on exam, normal labs, Prescription Management I considered prescription management with: Other (epipen, pred ) Chronic Conditions Patient?s care impacted by: Other (allergic reactions to unknown food ) Critical Care Time Critical Care Time Critical Care Time: No Discharge Plan Discharge Clinical Impression: Allergic reaction, Acute hyperkalemia, Enteritis Patient Disposition: Home, Self-Care Instructions: General Allergic Reaction (ED), Allergy Testing (ED), Enteritis (ED) Additional Instructions: Take your medications as prescribed. If you were prescribed antibiotics today, it is important that you take your medication to their entirety, do not skip any doses, do not finish them early. Follow-up with your primary care provider this week. Return to the emergency department with new or worsening symptoms. Such as fevers, chills, chest pain, shortness of breath, nausea, vomiting, dizziness, headache, vision changes, lethargy In case of emergency call 911 Your potassium was noted to be elevated in the emergency department you received a medicine to help bring it down. Please follow-up with your PCP in 1-3 days for repeat labs. How to use an EpiPen: ? Place the orange tip against the middle of the outer thigh. ? Swing and push the auto-injector firmly into the thigh until it ?clicks? ? Hold firmly in place for three seconds?count slowly, ?1, 2, 3? An EpiPen has been sent to your pharmacy this should only be used in severe emergency such as inability to breathe trouble speaking, shortness breath or any signs of anaphylaxis as discussed. If he use an EpiPen it is crucial you come in to an emergency department to be evaluated as you can have a rebound effect. Please follow-up with an allergy doctor. CT/CT abdomen pelvis wo IV con IMPRESSION: Recurrent nonspecific long segment enteritis. Small volume of free fluid in the pelvis is likely reactive. No evidence of bowel obstruction. Other chronic and incidental findings as above. Fleischner guidelines were followed. Follow up with GI as well Prescriptions: New prednisone 20 mg tablet 20 mg PO DAILY 5 Days Qty: 5 0RF diphenhydramine HCl [Benadryl] 25 mg capsule 25 mg PO TID PRN (Reason: allergic reaction) Qty: 20 0RF epinephrine [EpiPen 2-Sánchez] 0.3 mg/0.3 mL auto-injector 0.3 mg IM Q4H PRN (Reason: anaphylaxis) Qty: 2 0RF No Action ketorolac 10 mg tablet 10 mg PO Q6H PRN (Reason: pain) 5 Days Qty: 20 0RF Rx Instructions: Patient received Toradol in the emergency room. tamsulosin [Flomax] 0.4 mg capsule 0.4 mg PO BEDTIME Qty: 4 0RF azithromycin 250 mg tablet 250 mg PO DAILY 4 Days Qty: 4 0RF Rx Instructions: start on day 2 of therapy benzonatate 200 mg capsule 200 mg PO TID PRN (Reason: cough) Qty: 14 0RF cyclobenzaprine 10 mg tablet 10 mg PO TID PRN (Reason: muscle spasm) Qty: 10 0RF naproxen 500 mg tablet 500 mg PO BID PRN (Reason: pain) Qty: 20 0RF amoxicillin-pot clavulanate 875-125 mg tablet 1 tab PO BID 5 Days Qty: 10 0RF ondansetron 4 mg tablet,disintegrating 4 mg PO Q8H PRN (Reason: nausea and vomiting) 4 Days Qty: 14 0RF metformin 500 mg tablet extended release 24 hr 500 mg PO DAILY lisinopril 2.5 mg tablet 2.5 mg PO DAILY (DME) lancets [FreeStyle Lancets] 28 gauge misc See Rx Instructions .ROUTE DAILY Qty: 100 Rx Instructions: As directed (DME) FreeStyle Lite Strips Strip See Rx Instructions .ROUTE DAILY Qty: 10 Rx Instructions: As directed Referrals: [facility] [Provider Group] - 1 day [facility] [Outside] - 1 day Frederick Robbins MD [Primary Care Provider] - 2 days Stand Alone Forms: Work/School Release Print Language: Romanian
[2024-05-08 07:28] VITALS: BP 143/96; PULSE 107; RESP 20; TEMP 36.7; O2SAT 94
--- NOTE | 2024-05-08 08:21 | ECG_ITS ---
Test Reason : ABDOMINAL Blood Pressure : / mmHG Vent. Rate : 110 BPM Atrial Rate : 110 BPM P-R Int : 160 ms QRS Dur : 084 ms QT Int : 342 ms P-R-T Axes : 021 025 031 degrees QTc Int : 462 ms Sinus tachycardia Otherwise normal ECG When compared with ECG of 12-MAR-2024 13:42, Borderline criteria for Inferior infarct are no longer Present Heart rate has increased Referred By: Samuel Muniz Electronically Signed By:HAMIDA ARCEO
[2024-05-08] MEDS: Sodium Zirconium Cyclosilicate 10 GM POWD.PACK PO (08:33)
[2024-05-08] MEDS: dexAMETHasone sod phosphate 10 MG/ML VIAL IVPUSH (08:33)
[2024-05-08 09:07] LABS: Appearance Urine Clear; Color Urine Yellow; Glucose Urine UA Negative (Negative); Leukocyte Esterase Urine Negative (Negative); Nitrite Urine Negative (Negative); PH 5.5 (5.0-9.0); Specific Gravity - Urine >= 1.030 (1.005-1.025); Urine Blood Negative (Negative); Urine Ketones Trace mg/dL (Negative); Urine Protein Trace mg/dL (Neg-Trace)
[2024-05-08 11:20] VITALS: BP 136/77; PULSE 98; RESP 18; TEMP 36.7; O2SAT 92
[2024-05-08 14:19] VITALS: BP 136/77; PULSE 109; RESP 12; TEMP 36.2; O2SAT 95
[2024-05-08 14:27] VITALS: BP 120/70; PULSE 80; RESP 14; TEMP 36.8; O2SAT 98
[2024-05-08 14:41] LABS: Anion Gap 18 (12-20); Blood Urea Nitrogen 16 mg/dL (9-16); Calcium 10.3 mg/dL (8.4-10.2); Carbon Dioxide 23 mmol/L (22-29); Chloride 101 mmol/L (96-108); Estimated Glomerular Filt Rate > 60; Glucose Random 268 mg/dL (60-115); Potassium 4.7 mmol/L (3.3-5.1); Sodium 137 mmol/L (135-145)
== END 2024-05-08 14:28 | disposition home or self-care (01) ==
PROVIDERS: Physician Assistant; Emergency Provider Emergency Medicine; PCP Family Medicine
DX: T78.1XXA Other adverse food reactions, not elsewhere classified, initial encounter (principal); K52.9 Noninfective gastroenteritis and colitis, unspecified; E87.5 Hyperkalemia; X58.XXXA Exposure to other specified factors, initial encounter; E11.9 Type 2 diabetes mellitus without complications; I10 Essential (primary) hypertension; E78.5 Hyperlipidemia, unspecified; Z03.818 Encounter for observation for suspected exposure to other biological agents ruled out
CPT/HCPCS: 0241U; 36415; 74176; 80048; 80053; 81003; 83690; 85027; 93005; 96374; 99285; J1100

== ENCOUNTER 2024-08-14 11:20 | Emergency (ER) | payer OTHER, SELFPAY ==
--- NOTE | 2024-08-14 11:34 | ED_ITS ---
HPI - Nausea/Vomiting/Diarrhea General Chief complaint: Abdominal Pain Stated complaint: vomiting Time Seen by Provider: 08/14/24 19:34 History of Present Illness ED Provider: Andrés SOARES Narrative: The patient is a 53-year-old woman who comes to the emergency room because of 3 days of abdominal symptoms. She says that symptoms again 2 days ago on Saturday. She developed nausea and vomiting and abdominal pain and also diarrhea. She has been unable to eat anything for the last couple of days. She has had similar episodes in the past. She says that today's symptoms are very similar to the last time she came to the emergency room. At that time she had a CT scan of her abdomen on May 08 that showed a segment of small bowel inflammation consistent with ?long segment enteritis. The patient had also been seen here on February 09 of this year and had a CT that showed findings of diffuse ileitis. The patient says that she has had multiple episodes of similar symptoms in the past but sometimes her episodes are brief. She came to the emergency room because the symptoms have been going on for 3 days and she is unable to take anything by mouth. She has had a cholecystectomy. She does not feel that today's episode is any different from the last 2 times she was in the emergency room with similar symptoms. No fever. No blood in her emesis or stool. Related Data Home Medications ?Medication ?Instructions ?Recorded ?Confirmed blood sugar diagnostic (FreeStyle #10 ea 01/24/23 Lite Strips) lancets 28 gauge (FreeStyle #100 ea 01/24/23 Lancets) lisinopril 2.5 mg tablet 2.5 mg PO DAILY 01/24/23 metformin 500 mg tablet,extended 500 mg PO DAILY 01/24/23 release 24 hr Previous Rx's ?Medication ?Instructions ?Recorded azithromycin 250 mg tablet 250 mg PO DAILY 4 days #4 tabs 10/22/22 benzonatate 200 mg capsule 200 mg PO TID PRN cough #14 caps 10/22/22 ketorolac 10 mg tablet 10 mg PO Q6H PRN pain 5 days #20 11/15/22 tabs tamsulosin 0.4 mg capsule (Flomax) 0.4 mg PO BEDTIME #4 caps 11/15/22 cyclobenzaprine 10 mg tablet 10 mg PO TID PRN muscle spasm #10 03/27/23 tabs naproxen 500 mg tablet 500 mg PO BID PRN pain #20 tabs 03/27/23 amoxicillin 875 mg-potassium 1 tab PO BID 5 days #10 tabs 02/10/24 clavulanate 125 mg tablet ondansetron 4 mg disintegrating 4 mg PO Q8H PRN nausea and 02/10/24 tablet vomiting 4 days #14 tabs diphenhydramine HCl 25 mg capsule 25 mg PO TID PRN allergic reaction 05/08/24 (Benadryl) #20 caps epinephrine 0.3 mg/0.3 mL 0.3 mg (0.3 mL) IM Q4H PRN 05/08/24 injection, auto-injector (EpiPen anaphylaxis #2 ea 2-Sánchez) prednisone 20 mg tablet 20 mg PO DAILY 5 days #5 tabs 05/08/24 dicyclomine 10 mg capsule 10 mg PO QID PRN abdominal pain 08/14/24 #14 caps ibuprofen 400 mg tablet 400 mg PO Q6H PRN pain #14 tabs 08/14/24 ondansetron 4 mg disintegrating 4 mg PO Q6H PRN nausea and 08/14/24 tablet vomiting #14 tabs Allergies Allergy/AdvReac Type Severity Reaction Status Date / Time No Known Allergies Allergy Verified 08/14/24 11:37 Review of Systems 2 Review of Systems: Yes all other systems are reviewed and are negative [facility] Past Medical History Medical History Hyperlipidemia Hypertension Diabetes Surgical History Hx of cholecystectomy Social History Social History Alcohol intake: never Smoked in Last 30 Days: No Use of substances other than those prescribed or required for medical reasons: No Advance Directives: No Advance Directives Information Provided: No Do you have a plan to hurt others: No Plan Patient : No Physical Exam 2 Vital Signs: Vital Signs: Last Vital Signs Temp 98.2 F 08/14/24 21:49 Pulse 68 08/14/24 21:49 Resp 18 08/14/24 21:49 BP 132/78 08/14/24 21:49 Pulse Ox 98 08/14/24 21:49 O2 Del Method Room Air 08/14/24 20:03 BMI result Body Mass Index 41.6 Const: Other: The patient is awake, alert, pleasant, cooperative. She does not appear obviously acutely ill. HEENT: Head: Yes normal to inspection Face and sinus: Yes normal facial exam Mouth: Normal oral and palatal mucosa present and moist mucous membranes Eyes: General: appearance normal, both eyes and all related structures Neck: Neck: Yes full ROM Resp: Effort & Inspection: normal respiratory effort Auscultation: clear to auscultation bilaterally Cardio: Rate: regular rate Rhythm: regular rhythm Heart sounds: S1 normal heart sound present and S2 normal heart sound present GI: Other: The abdomen is soft. There is some mild diffuse tenderness but no focal tenderness. No rebound or guarding. Skin: Other: Skin is dry and unremarkable Neuro: Other: The patient is awake and alert with a normal mental status. Cranial nerves are grossly intact. She moves her extremities normally. Extrem: Other: No peripheral edema Course Course Course Narrative: This is an RME: Additional HPI, ROS, PE not included below will be deferred to primary provider. RME assessment and note performed by: Danyelle Romeo PA-C This is a [id number] hypertension, hyperlipidemia, who presents to the ER with complaints of abdominal pain, nausea, vomiting and diarrhea. No bloody stool or vomit. No urinary symptoms. Unable to tolerate PO. +chills. Abd is soft with diffuse tenderness, more in epigastrium. Had cholescystectomy and hernia repair. Plan: Labs, UA, viral swabs Medications Administered Discontinued Medications Generic Name Dose Route Start Last Admin Trade Name Isa PRN Reason Stop Dose Admin Acetaminophen 975 mg 08/14/24 18:23 08/14/24 18:30 Acetaminophen 325 Mg Tablet PO 08/14/24 18:24 975 mg ONCE ONE Administration Acetaminophen 1,000 mg in 100 mls @ 400 mls/hr 08/14/24 19:44 08/14/24 21:44 Ofirmev IV 08/14/24 19:58 Infused ONCE ONE Infusion Sodium Chloride 1,000 mls @ 999 mls/hr 08/14/24 19:45 08/14/24 21:48 Ns IV 08/14/24 20:45 Infused .Q1H1M ALLEY Infusion Ketorolac Tromethamine 10 mg 08/14/24 19:44 08/14/24 20:00 Ketorolac Tromethamine 15 Mg/Ml Vial IVPUSH 08/14/24 19:45 10 mg ONCE ONE Administration Ondansetron HCl 4 mg 08/14/24 18:23 08/14/24 18:30 Ondansetron Odt 4 Mg Tab.Mary Alicedis TRANSLINGU 08/14/24 18:24 4 mg ONCE ONE Administration Ondansetron HCl 4 mg 08/14/24 19:44 08/14/24 20:00 Ondansetron Hcl 4 Mg/2 Ml Vial IVPUSH 08/14/24 19:45 4 mg ONCE ONE Administration Medical Decision Making Medical Decision Making [facility] Narrative: The patient presents with abdominal pain, nausea, vomiting, and diarrhea. She has had several similar episodes in the past. So far this year she has had 2 CT scans of the abdomen and pelvis with similar complaints. Both of these have shown enteritis. I suspect the patient is having another episode of the same problem. She says that she has followed up with Gastroenterology to [facility] but has not really been given any specific diagnosis. She was treated symptomatically. She seemed to feel better. She will be discharged with prescriptions for ondansetron, ibuprofen, and dicyclomine. Lab Data 08/14/24 12:20 08/14/24 12:20 Labs: Lab Results 08/14/24 Range/Units 12:20 WBC 10.3 (4.8-10.8) X10*3/uL RBC 4.91 (4.20-5.50) X10*6/uL Hgb 15.2 (12.0-16.0) g/dl Hct 44.4 (37.0-47.0) % MCV 90.4 (80.0-98.0) fL MCH 31.0 (27.0-33.0) pg MCHC 34.2 (31.0-35.0) g/dl RDW 12.2 (11.0-16.0) % Plt Count 288 (160-400) X10*3/uL MPV 10.5 (9.4-12.3) fL Immature Gran % (Auto) 0.3 (0.0-0.4) % Neut % (Auto) 79.8 H (45-73) % Lymph % (Auto) 14.6 L (20-40) % [place] % (Auto) 4.8 (2-11) % Eos % (Auto) 0.2 (0-4) % Baso % (Auto) 0.3 (0-2) % Lymph # (Auto) 1.5 (1.2-4.9) X10*3/uL [place] # (Auto) 0.5 (0.1-1.2) X10*3/uL Eos # (Auto) 0.0 (0.0-0.4) X10*3/uL Baso # (Auto) 0.0 (0.0-0.2) X10*3/uL Abs Immat Gran (auto) 0.03 (0.00-0.03) X10*3/uL Absolute Neuts (auto) 8.2 (2.0-8.3) x10*3/uL Absolute Nucleated RBC 0.000 (0.0-0.012) X10*3/uL Nucleated RBC % (auto) 0.0 (0.0-0.2) /100WBC Sodium 137 (135-145) mmol/L Potassium 4.4 (3.3-5.1) mmol/L Chloride 104 (96-108) mmol/L Carbon Dioxide 22 (22-29) mmol/L Anion Gap 15 (12-20) BUN 18 H (9-16) mg/dL Creatinine 0.94 (0.5-1.4) mg/dL Estim Creat Clear Calc 73.2 Estimated GFR > 60 Random Glucose 237 H (60-115) mg/dL Calcium 9.5 D (8.4-10.2) mg/dL Magnesium 2.0 (1.6-2.6) mg/dL Total Bilirubin 0.7 (0.0-1.0) mg/dL AST 15 (5-31) U/L ALT 24 (0-31) U/L Alkaline Phosphatase 72 (39-117) U/L Troponin I High Sens 2.7 (<3.5-17.0) ng/L Total Protein 7.8 (6.5-8.0) g/dL Albumin 4.6 (3.5-5.0) g/dL Lipase 8 (8-78) U/L Influenza Type A (PCR) NEGATIVE (Negative) Influenza Type B (PCR) NEGATIVE (Negative) RSV RNA Qual (PCR) NEGATIVE (Negative) SARS-CoV-2 RNA (RT-PCR) NEGATIVE (Negative) Discharge Plan Discharge Clinical Impression: Abdominal pain, vomiting, and diarrhea Patient Disposition: Home, Self-Care Additional Instructions: You seem to be having another episode of the same syndrome that you have had in the past. I think you should probably plan on following up with your residence life director to discuss another 1 of these episodes. Please contact your residence life director and your regular doctor's office on Saturday to discuss this episode. I have sent a prescription for ondansetron that you may use as needed for nausea. For pain you may try ibuprofen and acetaminophen. I have also sent a prescription for a medication called dicyclomine which you may try as well to see if it is helpful for your abdominal pains. Return to the emergency room if you feel significantly worse. Prescriptions: New ondansetron 4 mg tablet,disintegrating 4 mg PO Q6H PRN (Reason: nausea and vomiting) Qty: 14 0RF ibuprofen 400 mg tablet 400 mg PO Q6H PRN (Reason: pain) Qty: 14 0RF dicyclomine 10 mg capsule 10 mg PO QID PRN (Reason: abdominal pain) Qty: 14 0RF No Action ketorolac 10 mg tablet 10 mg PO Q6H PRN (Reason: pain) 5 Days Qty: 20 0RF Rx Instructions: Patient received Toradol in the emergency room. tamsulosin [Flomax] 0.4 mg capsule 0.4 mg PO BEDTIME Qty: 4 0RF azithromycin 250 mg tablet 250 mg PO DAILY 4 Days Qty: 4 0RF Rx Instructions: start on day 2 of therapy benzonatate 200 mg capsule 200 mg PO TID PRN (Reason: cough) Qty: 14 0RF cyclobenzaprine 10 mg tablet 10 mg PO TID PRN (Reason: muscle spasm) Qty: 10 0RF naproxen 500 mg tablet 500 mg PO BID PRN (Reason: pain) Qty: 20 0RF amoxicillin-pot clavulanate 875-125 mg tablet 1 tab PO BID 5 Days Qty: 10 0RF ondansetron 4 mg tablet,disintegrating 4 mg PO Q8H PRN (Reason: nausea and vomiting) 4 Days Qty: 14 0RF prednisone 20 mg tablet 20 mg PO DAILY 5 Days Qty: 5 0RF diphenhydramine HCl [Benadryl] 25 mg capsule 25 mg PO TID PRN (Reason: allergic reaction) Qty: 20 0RF epinephrine [EpiPen 2-Sánchez] 0.3 mg/0.3 mL auto-injector 0.3 mg IM Q4H PRN (Reason: anaphylaxis) Qty: 2 0RF metformin 500 mg tablet extended release 24 hr 500 mg PO DAILY lisinopril 2.5 mg tablet 2.5 mg PO DAILY (DME) lancets [FreeStyle Lancets] 28 gauge misc See Rx Instructions .ROUTE DAILY Qty: 100 Rx Instructions: As directed (DME) FreeStyle Lite Strips Strip See Rx Instructions .ROUTE DAILY Qty: 10 Rx Instructions: As directed Referrals: Yanni Camargo. Korina Gary [Provider Group] (recurrent abdominal pain syndrome) Stand Alone Forms: Work/School Release Interventions: ED Discharge Assessment Last Done: 08/14/24 21:49 Discharge Date/Time: 08/14/24 21:50 Print Language: Taiwanese
[2024-08-14 11:35] VITALS: BP 151/87; PULSE 110; RESP 18; TEMP 36.6; O2SAT 97; BMI 41.6
--- NOTE | 2024-08-14 11:37 | ECG_ITS ---
Test Reason : ABD PAIN Blood Pressure : / mmHG Vent. Rate : 110 BPM Atrial Rate : 110 BPM P-R Int : 160 ms QRS Dur : 084 ms QT Int : 328 ms P-R-T Axes : 018 012 027 degrees QTc Int : 443 ms Sinus tachycardia Otherwise normal ECG When compared with ECG of 08-MAY-2024 08:35, No significant change was found Referred By: Danyelle Romeo Electronically Signed By:SHIRA SILVA
[2024-08-14 12:24] LABS: MANUAL DIFF FLAG NO
[2024-08-14 12:25] LABS: Basophils Percent Auto 0.3 % (0-2); Eosinophils Percent Auto 0.2 % (0-4); Hematocrit 44.4 % (37.0-47.0); Hemoglobin 15.2 g/dl (12.0-16.0); Imm Gran Abs Auto 0.03 X10*3/uL (0.00-0.03); Imm Gran Pct Auto 0.3 % (0.0-0.4); Lymphocytes Absolute Auto 1.5 X10*3/uL (1.2-4.9); Lymphocytes Percent Auto 14.6 % (20-40); Mean Corpuscular HGB Conc 34.2 g/dl (31.0-35.0); Mean Corpuscular Volume 90.4 fL (80.0-98.0); Mean Platelet Volume 10.5 fL (9.4-12.3); Monocytes Absolute Auto 0.5 X10*3/uL (0.1-1.2); Monocytes Percent Auto 4.8 % (2-11); Neutrophils Absolute Auto 8.2 x10*3/uL (2.0-8.3); Neutrophils Percent Auto 79.8 % (45-73); Platelet Count 288 X10*3/uL (160-400); Red Blood Count 4.91 X10*6/uL (4.20-5.50); Red Cell Distribution Width 12.2 % (11.0-16.0); White Blood Count 10.3 X10*3/uL (4.8-10.8)
[2024-08-14 12:41] LABS: Alanine Aminotransferase 24 U/L (0-31); Albumin Level 4.6 g/dL (3.5-5.0); Alkaline Phosphatase 72 U/L (39-117); Anion Gap 15 (12-20); Aspartate Amino Transferase 15 U/L (5-31); Bilirubin Total 0.7 mg/dL (0.0-1.0); Blood Urea Nitrogen 18 mg/dL (9-16); Calcium 9.5 mg/dL (8.4-10.2); Carbon Dioxide 22 mmol/L (22-29); Chloride 104 mmol/L (96-108); Creatinine Clr Calc Pharmacy 73.2; Estimated Glomerular Filt Rate > 60; Glucose Random 237 mg/dL (60-115); Lipase 8 U/L (8-78); Potassium 4.4 mmol/L (3.3-5.1); Sodium 137 mmol/L (135-145); Total Protein 7.8 g/dL (6.5-8.0)
[2024-08-14 12:49] LABS: Troponin-I High Sensitivity 2.7 ng/L (<3.5-17.0)
[2024-08-14 13:02] LABS: Influenza A PCR NEGATIVE (Negative); Influenza B PCR NEGATIVE (Negative); Resp Syncy Virus RNA Qual PCR NEGATIVE (Negative); SARS COV2 PCR INHOUSE NEGATIVE (Negative)
[2024-08-14 18:21] VITALS: BP 170/90; PULSE 110; RESP 16; TEMP 36.7; O2SAT 96
[2024-08-14] MEDS: Acetaminophen 325 MG TABLET 975 MG PO (18:30)
[2024-08-14] MEDS: Ondansetron ODT 4 MG TAB.RAPDIS TRANSLINGU (18:30)
[2024-08-14] MEDS: 0.9 % Sodium Chloride 1,000 ML 999 ML IV (19:55)
[2024-08-14] MEDS: Acetaminophen 1,000 MG/100 ML PIGGYBACK 400 MG IV (19:59)
[2024-08-14] MEDS: Ketorolac Tromethamine 15 MG/ML VIAL 10 MG IVPUSH (20:00)
[2024-08-14] MEDS: ondansetron HCL 4 MG/2 ML VIAL IVPUSH (20:00)
[2024-08-14 20:03] VITALS: BP 119/80; PULSE 105; RESP 18; TEMP 37.1; O2SAT 95
--- NOTE | 2024-08-14 20:07 | PC.NURSE ---
#20 IV placed in L-ac, medications administered as orderd, IV fluids running/. Pt has call moore and verbalized understanding of use
[2024-08-14 21:49] VITALS: BP 132/78; PULSE 68; RESP 18; TEMP 36.8; O2SAT 98
== END 2024-08-14 21:50 | disposition home or self-care (01) ==
PROVIDERS: Physician Assistant Medical; Emergency Provider Emergency Medicine
DX: R11.2 Nausea with vomiting, unspecified (principal); R10.2 Pelvic and perineal pain; R19.7 Diarrhea, unspecified; R00.0 Tachycardia, unspecified; Z03.818 Encounter for observation for suspected exposure to other biological agents ruled out; Z79.899 Other long term (current) drug therapy
CPT/HCPCS: 0241U; 80053; 83690; 83735; 84484; 85025; 93005; 96361; 96374; 96375; 99285; J0131; J1885; J2405

== ENCOUNTER → 2024-08-14 11:37 | Outpatient (BNV) | payer OTHER, SELFPAY | PROVIDERS: Emergency Provider Emergency Medicine; Visit Provider Internal Medicine | DX: R00.0 Tachycardia, unspecified (principal); R10.9 Unspecified abdominal pain | CPT/HCPCS: 93010 ==